=== PATIENT | female | born 1990 | race Caucasian/White ===

== ENCOUNTER → 2019-11-23 13:05 | Outpatient (BNVA) | payer OTHER, SELFPAY | PROVIDERS: Family Provider Family Medicine; PCP Family Medicine; Visit Provider Obstetrics & Gynecology | DX: Z12.4 Encounter for screening for malignant neoplasm of cervix (principal) | CPT/HCPCS: 88175 ==

== ENCOUNTER → 2019-12-01 14:00 | Outpatient (BNVA) | payer OTHER, SELFPAY | PROVIDERS: Family Provider Family Medicine; PCP Family Medicine; Visit Provider Nurse Practitioner Family | DX: R51 Headache (principal); J02.9 Acute pharyngitis, unspecified; Z11.59 Encounter for screening for other viral diseases | CPT/HCPCS: 87635 ==

== ENCOUNTER → 2020-01-10 10:15 | Outpatient (BNVA) | payer OTHER, SELFPAY | PROVIDERS: Family Provider Family Medicine; PCP Family Medicine; Visit Provider Obstetrics & Gynecology | DX: Z34.90 Encounter for supervision of normal pregnancy, unspecified, unspecified trimester (principal) | CPT/HCPCS: 84702 ==

== ENCOUNTER 2020-01-11 16:55 | Emergency (ER) | payer OTHER, SELFPAY ==
--- NOTE | 2020-01-11 16:56 | XR_ITS ---
WS: [id number] Left ankle, 3 views, 01/11/2020 Clinical Data: injury Comparison: None. Findings: No fractures or dislocations are seen. The ankle mortise is normal. The talus and calcaneus are unrem arkable. No soft tissue swelling over the medial or lateral malleolus is seen. XR/XR ankle LT min 3V* [id number] Impression: Negative left ankle.
--- NOTE | 2020-01-11 16:56 | XR_ITS ---
WS: [id number] Left foot, 3 views, 01/11/2020 Clinical Data: injury Comparison: None. Findings: No fractures or dislocations are seen. No bone destruction or erosion is noted. The joint spaces and soft tissues are normal. XR/XR foot LT min 3V* [id number] Impression: Negative left foot.
[2020-01-11 17:01] VITALS: BP 146/100; PULSE 89; RESP 16; TEMP 36.7; O2SAT 100; BMI 27.8
[2020-01-11 17:08] VITALS: O2SAT 98
--- NOTE | 2020-01-11 17:13 | XR_ITS ---
WS: [id number] Right hand, 3 views, 01/11/2020 Clinical Data: pain after fall Comparison: None. Findings: No fractures or dislocations are seen. The soft tissues are unremarkable. The joint space s are normal XR/XR hand RT min 3V* [id number] Impression: Negative right hand.
--- NOTE | 2020-01-11 17:28 | W.ED.EXTPRO ---
HPI - Extremity Problem General: Chief complaint: Extremity Injury, Lower Stated complaint: FALL LEFT FOOT/ANKLE PAIN Time Seen by Provider: 01/11/20 17:07 History of Present Illness: HPI Narrative: 29-year-old female who presents emergency room after falling while at work she was working here at [facility] [place] stumbled going up the stairs she held onto the rail with her left hand and reached out with her right hand to try to break her fall. She has some pain in her right hand as well as in the left ankle. She had an inversion injury to the ankle there is no obvious deformity moderate swelling she did not strike her head there is no loss consciousness she denies any other injuries other than those outlined above. MD Complaint: extremity pain and joint pain (Right hand, left ankle) Onset (ago): minute(s) Pain Consistency: constant Location: other (Right hand left ankle) Quality: aching Radiation: none Relieving factors: rest Exacerbating factors: range of motion and weight bearing Associated symptoms: Reports no associated symptoms; Deny fever(s) Review of Systems Const: Denies: fever(s), chills, body aches, change in appetite, fatigue or malaise Resp: Denies: dyspnea, productive cough or non-productive cough PFSH ED PFSH: Medical History No pertinent past medical history Denies diabetes, asthma, hypertension, seizures, DVT/PE PCP: Dr. Heath Surgical History S/P cholecystectomy 02/12/2019, performed by Dr. Man Guidry/Avi VILLARREAL She had a cone biopsy done in 2007 in the operating room by Dr. Enriquez at [facility] for an abnormal Pap smear. S/P tonsillectomy as a child S/P wisdom tooth extraction Family History Grandmother Breast cancer Paternal, diagnosed at age 55 Hypertension maternal Other Stroke Denies family history of Colon cancer Ovarian cancer Diabetes Heart disease Hyperlipidemia Uterine cancer Thyroid condition Physical Exam Const: COMMON NORMALS: no acute distress GENERAL APPEARANCE: cooperative and comfortable ORIENTATION/CONSCIOUSNESS: Yes awake, Yes oriented to person, Yes oriented to place and Yes oriented to time HENMT: COMMON NORMALS: normocephalic, atraumatic and hearing grossly normal bilaterally HEAD & SCALP: normocephalic and atraumatic Neck/C-Spine: COMMON NORMALS: no JVD Resp: COMMON NORMALS: normal respiratory effort, No retractions, No use of accessory muscles and clear to auscultation bilaterally AUSCULTATION: clear to auscultation bilaterally Cardio: COMMON NORMALS: no JVD, regular rate, regular rhythm and No murmurs present (Cardio) RATE: regular rate RHYTHM: regular rhythm GI: COMMON NORMALS: Soft to palpation and No hepatosplenomegaly present AUSCULTATION: Yes normoactive bowel sounds PALPATION: Yes Soft to palpation, No Tenderness to palpation present (GI), No Guarding due to palpation present (GI) and Yes No hepatosplenomegaly present Extremity: COMMON NORMALS: normal to inspection, capillary refill normal, no clubbing, cyanosis or edema, no calf tenderness and no pedal edema NARRATIVE EXTREMITY EXAM: Mild swelling medial aspect left ankle good dorsi and plantar flexion strength at 5/5 sensation normal dorsalis pedis and posterior tibialis pulses are normal. Examination of the right hand and wrist there is no deformity no pain in the anatomical snuffbox patient is able to flex and extend against resistance good intrinsic hand strength normal sensation neurovascularly intact Neuro: SENSORIUM/ORIENTATION: Yes oriented to person, Yes oriented to place and Yes oriented to time Course Vital Signs: Vital signs: Vital Signs Temperature 98.1 F 01/11/20 17:01 Pulse Rate 89 01/11/20 17:01 Respiratory Rate 16 01/11/20 17:01 Blood Pressure 146/100 01/11/20 17:01 Pulse Oximetry 98 01/11/20 17:08 MDM - Extremity (Nontraumatic) MDM Narrative: Medical decision making narrative: Reviewed x-rays. Patient has mild ankle sprain but no evidence of acute fracture no evidence of significant injury at this time. Weightbearing as tolerated she is prefers not to take any anti-inflammatories ice as needed can use acetaminophen return if has further problems. At this point I think she is safe to return back to work in her normal functions. She demonstrated in the room the ability to weight-bear without difficulty. Discharge Plan Discharge Patient Disposition: Home Clinical Impression: Fall, Ankle sprain and strain Condition: Stable Prescriptions: No Action prenat.vits,layton,dbv-qayl-nomkw Tablet 1 tab PO DAILY RF: 0 Discharge Orders: Discharge Order (Routine); Ordered 01/11/20 Ordered By: Mario Solano Referrals: Mary Heath MD [Primary Care Provider] - Activity Restrictions/Additional Instructions: Follow-up with employee health. Weightbearing on the right foot as tolerated Interventions: ED Discharge Assessment Last Done: 01/11/20 19:05 ED Charges Last Done: 01/11/20 18:41 Discharge Date/Time: 01/11/20 19:06 Coding Level of Care Code ED Bonding And Composite Fabricator for Chg Fwd Exam Detailed
--- NOTE | 2020-01-11 17:36 | PC.NURSE ---
portable xray at bedside
[2020-01-11] MEDS: HYDROcodone-acetaminophen 7.5-325 mg Tablet 1 TAB PO (17:54)
--- NOTE | 2020-01-11 18:44 | PC.NURSE ---
occupational therapy in with pt now to get urine sample and lab samples for workman's comp requirements
== END 2020-01-11 19:06 | disposition home or self-care (01) ==
PROVIDERS: Emergency Provider Family Medicine; Family Provider Family Medicine; PCP Family Medicine
DX: S93.402A Sprain of unspecified ligament of left ankle, initial encounter (principal); S96.912A Strain of unspecified muscle and tendon at ankle and foot level, left foot, initial encounter; W18.43XA Slipping, tripping and stumbling without falling due to stepping from one level to another, initial encounter; Y99.0 Civilian activity done for income or pay
CPT/HCPCS: 12345; 73130; 73610; 73630; 99281; 99283

== ENCOUNTER → 2020-01-16 06:15 | Outpatient (BNVA) | payer OTHER, SELFPAY | PROVIDERS: Family Provider Family Medicine; PCP Family Medicine; Visit Provider Obstetrics & Gynecology | DX: Z34.90 Encounter for supervision of normal pregnancy, unspecified, unspecified trimester (principal) | CPT/HCPCS: 84702 ==

== ENCOUNTER → 2020-01-27 15:46 | Outpatient (BNVA) | payer OTHER, SELFPAY | PROVIDERS: Family Provider Family Medicine; PCP Family Medicine; Visit Provider Obstetrics & Gynecology | DX: Z34.90 Encounter for supervision of normal pregnancy, unspecified, unspecified trimester (principal) | CPT/HCPCS: 84702 ==

== ENCOUNTER → 2020-02-07 11:58 | Outpatient (BNVA) | payer OTHER, SELFPAY | PROVIDERS: Family Provider Family Medicine; PCP Family Medicine; Visit Provider Obstetrics & Gynecology | DX: O03.9 Complete or unspecified spontaneous abortion without complication (principal); Z3A.00 Weeks of gestation of pregnancy not specified | CPT/HCPCS: 84702 ==

== ENCOUNTER → 2020-03-05 17:00 | Outpatient (BNVA) | payer OTHER, SELFPAY | PROVIDERS: Family Provider Family Medicine; PCP Family Medicine; Visit Provider Obstetrics & Gynecology | DX: O03.9 Complete or unspecified spontaneous abortion without complication (principal) | CPT/HCPCS: 84702 ==

== ENCOUNTER → 2020-03-13 08:15 | Outpatient (BNVA) | payer OTHER, SELFPAY | PROVIDERS: Family Provider Family Medicine; PCP Family Medicine; Visit Provider Obstetrics & Gynecology | DX: E34.9 Endocrine disorder, unspecified (principal) | CPT/HCPCS: 84702 ==

== ENCOUNTER → 2020-03-19 08:15 | Outpatient (BNVA) | payer OTHER, SELFPAY | PROVIDERS: Family Provider Family Medicine; PCP Family Medicine; Visit Provider Obstetrics & Gynecology | DX: E34.9 Endocrine disorder, unspecified (principal) | CPT/HCPCS: 84702 ==

== ENCOUNTER → 2020-03-26 08:05 | Outpatient (BNVA) | payer OTHER, SELFPAY | PROVIDERS: Family Provider Family Medicine; PCP Family Medicine; Visit Provider Obstetrics & Gynecology | DX: R79.9 Abnormal finding of blood chemistry, unspecified (principal); Z11.59 Encounter for screening for other viral diseases | CPT/HCPCS: 87635 ==

== ENCOUNTER 2020-03-30 06:02 | Day surgery (SDC) | payer OTHER, SELFPAY ==
[2020-03-27 13:03] VITALS: BMI 27.1
--- NOTE | 2020-03-27 13:31 | ANES.PREANE2 ---
Pre-Anesthetic Assessment Pre-Anesthetic Assessment: Height/Weight: Height 1.8 m Weight 88.451 kg Proposed Procedure: Operation Date: 03/30/20 07:10 Proposed Procedures p Dilation And Curettage (D&C) 37604 R79.9(Not Applicable) - Huma Guerrero MD Was Beta Dolores taken within 24 hours: N/A Social: Social History: No alcohol and No tobacco Exam: Pre-Anes Outpt Exam: alert and oriented x 3 Airway: Submandibular: WNL Cervical ROM: WNL MP: 1 History/ROS: No significant complaints Pulmonary: Pulmonary: None reported CV/HEM: CV/HEM: None reported : : None reported Hepatic: Hepatic: None reported GI: GI: GERD Metabolic: Metabolic: None reported Musc/skel: Musc/skel: None reported Neuropsych: Neuropsych: None reported Anesthetic Plan: ASA status: 2 Anesthesia: Choice PFSH Anesthesia PFSH: Medical History (Updated 01/19/20 @ 00:00 by ) No pertinent past medical history Denies diabetes, asthma, hypertension, seizures, DVT/PE PCP: Dr. Heath Surgical History S/P cholecystectomy 02/12/2019, performed by Dr. Conway S/Avi VILLARREAL She had a cone biopsy done in 2007 in the operating room by Dr. Enriquez at [facility] for an abnormal Pap smear. S/P tonsillectomy as a child S/P wisdom tooth extraction Family History Grandmother Breast cancer Paternal, diagnosed at age 55 Hypertension maternal Other Stroke Denies family history of Colon cancer Ovarian cancer Diabetes Heart disease Hyperlipidemia Uterine cancer Thyroid condition Female Reproductive History: Date of last menstrual period: 04/22/16 Data Anesthesia Cardiac Studies: No Data to Display
[2020-03-30 06:13] VITALS: BP 142/83; PULSE 89; RESP 18; TEMP 36.7; O2SAT 98
[2020-03-30 06:34] LABS: Basophils # 0.1 10^3/uL (0.0-0.1); Basophils % 0.7 %; Eosinophils # 0.2 10^3/uL (0.0-0.8); Eosinophils % 2.7 %; Hematocrit 40.7 % (37.0-47.0); Hemoglobin 12.9 g/dL (11.5-15.3); Lymphocytes # 2.2 10^3/uL (0.8-4.8); Lymphocytes % 32.8 %; Mean Corpuscular HGB Conc 31.7 g/dL (30.0-36.0); Mean Corpuscular Hemoglobin 28.9 pg (28.0-34.0); Mean Corpuscular Volume 91.3 fL (81-99); Monocytes # 0.6 10^3/uL (0.2-0.9); Monocytes % 8.3 %; Neutrophils % 55.2 %; Nucleated Red Blood Cells % 0 %; Platelet Count 232 10^3/cmm (130-400); Red Blood Count 4.46 10^6/uL (4.1-5.3); Red Cell Distribution Width 12.9 % (12.1-15.1); White Blood Count 6.7 10^3/uL (4.0-10.0)
[2020-03-30] MEDS: sodium chloride 0.9% 500 ML IV (06:35)
--- NOTE | 2020-03-30 06:39 | W.PM.OPSUD ---
Surgery/Procedure H&P Update DATE OF PROCEDURE: March 30, 2020 DATE H&P PERFORMED: 03/26/20 H&P UPDATE INFORMATION: I have reviewed H&P completed within last 30 days, I have examined patient prior to procedure, No changes to prior documentation and H&P is in [facility] [place] on date indicated PREOP DIAGNOSIS: Abnormal beta hCG PLANNED PROCEDURE: Operation Date: 03/30/20 07:00 Proposed Procedures p Dilation And Curettage (D&C) 87201 R79.9(Not Applicable) - Huma Guerrero MD
[2020-03-30] MEDS: ondansetron 2 mg/ML SDV 2 mL 4 MG IVP (06:45)
--- NOTE | 2020-03-30 07:27 | PM.OP ---
Operative Report Date of procedure: March 30, 2020 OPERATIVE REPORT Date of surgery: 03/30/2020 Date of dictation: 03/30/2020 Preoperative diagnosis: Persistently elevated blud-vZS-fhtmedeh retained products/incomplete Postoperative diagnosis/findings: Same, 8 weeks size anteverted uterus, mobile, no adnexal masses, shortened cervix with signs of previous surgery Procedure done: Dilation and curettage Specimens removed/disposition of specimens: Endometrial curettings Surgeon: Dr. Huma Cevallos Anesthesia:MAC Estimated blood loss: 25 ml Intravenous fluids: 800 mL of LR Urine output: 60 mL of clear urine via red rubber catheter at the start of procedure Medications: As per anesthesia records Complications: None, patient was taken back to the recovery room in a stable condition PROCEDURE: After consents were signed , the patient was taken to the operating room where she was placed under MAC anesthesia without any difficulty. She was placed in dorsal lithotomy position and exam under anesthesia showed a 8-week size anteverted uterus she was then prepped and draped in the usual sterile fashion. Weighted speculum and lateral wall retractors were used to visualize the cervix and the anterior lip of cervix was grasped with a tenaculum. The cervix was easily dilated without any difficulty to 17 Aquiles-Garcia dilator. Once this was done a sharp curette was introduced into the uterine cavity and curettage was performed without any difficulty until gritty sensation was obtained on all 4 gray of the uterus. Minimal to moderate tissue was obtained which appeared to look like normal endometrial tissue. This was sent to pathology. Bleeding was noted to be minimal. Tenaculum was removed from the cervix and hemostasis was noted at tenaculum site. Moved from the vagina. Anesthesia was reversed and patient was taken to the recovery room in a stable condition. FOLLOW UP: Follow-up in 3 weeks with surgeon MEDICATION ON DISCHARGE: Colace 100 mg by mouth every 12 hours when necessary constipation, 30 tablets, no refills Ibuprofen 800 mg by mouth every 8 hours when necessary pain, 60 tablets, no refills. Continue other home medication DISPOSITION: Home in a stable condition Pre-op Diagnosis: Abnormal beta hCG Results [facility] Beta-hCG trend 01/10/2020-751 01/16/2020-3057 01/27/2020-3413 (Cytotec and SAB) 02/07/2020-175 03/05/2020-327 03/13/2020-233 03/19/2020-213 03/30/20(D&C)--->105 04/06/20---> PAP Reports having normal Pap smears until 2007 when she had an abnormal Pap smear. This was repeated in 3 months and as it was still abnormal she was told she needed a cone biopsy which was performed in 2007. She reports compliance with her followup and states that they were all normal. 11/23/2019---([facility])----> negative for intraepithelial lesion or malignancy, negative high-risk HPV 06/2016----([facility])---->Normal per patient----these records have been requested today 10/02/2015---([facility])--> negative for intraepithelial lesion or malignancy, negative high-risk HPV 09/19/14-([facility])--> colposcopy [id number]-[id number]-yv LUI, squamocolumnar junction was not clearly seems to ECC was performed-scant endocervical cells-no atypia/dysplasia. High risk HPV negative. Repeat pap in 1 year. 08/25/14-([facility])-->LGSIL Her last Pap smear was in 2011 or 2012 and was normal per patient.
[2020-03-30] MEDS: sodium chloride 0.9% 1,000 ML 30 ML IV (07:35)
[2020-03-30 07:38] VITALS: BP 142/83; PULSE 89; RESP 18; TEMP 36.2; O2SAT 98
[2020-03-30 08:02] VITALS: BP 111/86; PULSE 72; RESP 18; O2SAT 100
[2020-03-30] MEDS: ibuprofen 800 mg tablet PO (08:15)
--- NOTE | 2020-03-30 13:11 | W.PM.OPSUD ---
Surgery/Procedure H&P Update DATE OF PROCEDURE: March 30, 2020 DATE H&P PERFORMED: 03/26/20 H&P UPDATE INFORMATION: I have reviewed H&P completed within last 30 days, I have examined patient prior to procedure, No changes to prior documentation and H&P is in [facility] [place] on date indicated PREOP DIAGNOSIS: Abnormal beta hCG PLANNED PROCEDURE: Operation Date: 03/30/20 07:00 Proposed Procedures p Dilation And Curettage (D&C) 08140 R79.9(Not Applicable) - Huma Guerrero MD
== END 2020-03-30 08:20 | disposition home or self-care (01) ==
PROVIDERS: Family Provider Family Medicine; PCP Family Medicine; Visit Provider Obstetrics & Gynecology
PROC: (CPT 58120; principal; 2020-03-30 07:00)
DX: O03.4 Incomplete spontaneous abortion without complication (principal)
CPT/HCPCS: 59812; 12345; 36415; 84702; 85025; 86850; 86900; 88305; 96365; 96374; J2405; J2704; J3010; J3490; J7030; J7040

== ENCOUNTER → 2020-04-04 11:50 | Outpatient (BNVA) | payer OTHER, SELFPAY | PROVIDERS: Family Provider Family Medicine; PCP Family Medicine; Visit Provider Obstetrics & Gynecology | DX: O03.4 Incomplete spontaneous abortion without complication (principal) | CPT/HCPCS: 84702 ==

== ENCOUNTER → 2020-05-03 10:55 | Outpatient (BNVA) | payer OTHER, SELFPAY | PROVIDERS: Family Provider Family Medicine; PCP Family Medicine; Visit Provider Nurse Practitioner Family | DX: Z01.812 Encounter for preprocedural laboratory examination (principal) | CPT/HCPCS: 87426 ==

== ENCOUNTER 2020-06-04 08:26 | Outpatient (CLI) | payer OTHER, SELFPAY ==
[2020-06-04 09:04] LABS: Progesterone 8.53 ng/mL
== END 2020-06-04 08:27 | disposition home or self-care (01) ==
PROVIDERS: PCP Family Medicine; Visit Provider Obstetrics & Gynecology
DX: N92.6 Irregular menstruation, unspecified (principal)
CPT/HCPCS: 36415; 84144

== ENCOUNTER → 2020-09-27 08:34 | Outpatient (BNVA) | payer OTHER, SELFPAY | PROVIDERS: PCP Family Medicine; Visit Provider Obstetrics & Gynecology | DX: O03.4 Incomplete spontaneous abortion without complication (principal) | CPT/HCPCS: 84702 ==

== ENCOUNTER → 2020-10-01 10:13 | Outpatient (BNVA) | payer OTHER, SELFPAY | PROVIDERS: PCP Family Medicine; Visit Provider Obstetrics & Gynecology | DX: Z34.90 Encounter for supervision of normal pregnancy, unspecified, unspecified trimester (principal) | CPT/HCPCS: 84702 ==

== ENCOUNTER 2020-10-29 20:37 | Emergency (ER) | payer OTHER, SELFPAY ==
[2020-10-29 20:57] VITALS: BP 111/71; PULSE 80; RESP 16; TEMP 36.9; O2SAT 97; BMI 28.1
[2020-10-29 21:17] VITALS: BP 114/75; PULSE 86; RESP 18; O2SAT 98
[2020-10-29 21:23] VITALS: BP 121/87; BP 126/85; PULSE 82; PULSE 87; PULSE 96
--- NOTE | 2020-10-29 21:26 | ED_ITS ---
HPI - Dizziness General: Chief Complaint: Dizziness Stated Complaint: DAY 10 COVID +: VISION CHANGES, NUMB/TINGLING EXTR Time Seen by Provider: 10/29/20 21:25 History of Present Illness: HPI Narrative: This patient is a 30-year-old female who presents to the emergency department with complaint of dizziness. 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 Patient also states she is 10 weeks . Patient states she has been doing well and was actually getting up to clean around the house and was bending over and got a little vision disturbance then felt tingling and shaking around the mouth and hands. Patient denies any syncopal episodes. Patient states she just felt nauseous. Will do medical evaluation treat as needed MD elicited complaint: dizziness and disequilibrium Timing: sudden onset Severity: mild Description: sense of movement Exacerbating factors: change in body position Relieving factors: remaining still Associated symptoms: Denies chest pain, chills, headache(s), nausea, palpitations or vomiting Associated neuro symptoms: Deny numbness in extremities Review of Systems General: Reports: 10 or more systems reviewed and unremarkable except in HPI and below Const: Denies: fever(s), chills, body aches or fatigue Eyes: Denies: change in vision or blurry vision ENMT: Denies: throat pain, hoarseness or mouth pain Card: Denies: chest pain, palpitations, irregular heart rhythm, edema, swelling of feet/ankles or lightheadedness Resp: Denies: dyspnea, productive cough, non-productive cough, wheezing or pain on inspiration GI: Denies: abdominal pain, nausea or vomiting : Denies: flank pain, difficulty voiding, dysuria, urinary frequency, urinary urgency or urinary hesitancy Musc: Denies: neck pain, back pain, extremity pain, extremity swelling, joint pain, joint swelling, joint redness, joint warmth or limited range of motion Skin/Breast: Denies: rash, pruritus, erythema or skin tenderness Neuro: Reports: dizziness; Denies: headache(s), numbness in extremities or weakness in extremities Psych: Denies: anxiety or depression PFSH ED PFSH: Medical History No pertinent past medical history Denies diabetes, asthma, hypertension, seizures, DVT/PE PCP: Dr. Heath Surgical History Hx of LASIK S/P cholecystectomy 02/12/2019, performed by Dr. Conway S/P dilation and curettage 03/30/2020--D&C done for persistently positive beta hCG after miscarriage-by Dr. Cevallos at [facility] [place]. - Pathology showed chorionic villi with focal hydropic changes without tissue, acutely inflamed decidua and benign proliferative phase endometrium without hyperplasia. S/P LEEP She had a cone biopsy done in 2007 in the operating room by Dr. Enriquez at [facility] for an abnormal Pap smear. S/P tonsillectomy as a child S/P wisdom tooth extraction Family History Grandmother Breast cancer Paternal, diagnosed at age 55 Hypertension maternal Other Stroke Denies family history of Colon cancer Ovarian cancer Diabetes Heart disease Hyperlipidemia Uterine cancer Thyroid condition Female Reproductive History: Date of last menstrual period: 04/22/16 Physical Exam Const: COMMON NORMALS: no acute distress, average body habitus, patient oriented x3, no limitations, healthy appearing, alert and well nourished HENMT: COMMON NORMALS: normocephalic, atraumatic, hearing grossly normal bilaterally, external ears normal, EAC's normal, TM's normal bilaterally, Normal external nose present, Normal nasal mucous membranes and turbinates present, moist oral mucous membranes, oropharynx normal, dentition normal and gingiva normal HEAD & SCALP: normocephalic and atraumatic NOSE: Normal external nose present and Normal nasal mucous membranes and turbinates present EXTERNAL EAR: Yes external ears normal EXTERNAL AUDITORY CANAL: EAC's normal TYMPANIC MEMBRANE: TM's normal bilaterally Neck/C-Spine: COMMON NORMALS: full ROM, no lymphadenopathy, supple, no meningeal signs, no JVD, Thyroid normal and No carotid bruits THYROID: Thy roid normal Chest: COMMONS NORMALS: normal inspection of the chest, normal palpation of entire chest wall, normal inspection of the breasts and normal palpation of the breasts Breast/axilla inspection: Yes normal inspection of the breasts BREAST/AXILLA PALPATION: Yes normal palpation of the breasts Resp: COMMON NORMALS: normal respiratory effort, No retractions, No use of accessory muscles, clear to auscultation bilaterally and percussion normal AUSCULTATION: clear to auscultation bilaterally PERCUSSION: percussion normal Cardio: COMMON NORMALS: no JVD, regular rate, regular rhythm, S1 normal heart sound present, S2 normal heart sound present, No gallops present (Cardio), No clicks present (Cardio), No murmurs present (Cardio), No rub (Cardio) and Peripheral pulses 2+ throughout RATE: regular rate RHYTHM: regular rhythm HEART SOUNDS: S1 normal heart sound present and S2 normal heart sound present PERIPHERAL PULSES: Peripheral pulses 2+ throughout GI: COMMON NORMALS: Normal to inspection, nondistended, normoactive bowel sounds present, Soft to palpation, non-tender, No hepatosplenomegaly present, no masses and no bruits PALPATION: Yes Soft to palpation and Yes No hepatosplenomegaly present Back/Pelvis: COMMON NORMALS: thoracic and lumbar spine normal to inspection, no thoracic nor lumbar tenderness, thoraco-lumbar ROM normal and straight leg raise negative bilaterally Extremity: COMMON NORMALS: normal to inspection, full ROM, capillary refill normal, no joint enlargement, no clubbing, cyanosis or edema, no calf tenderness and no pedal edema Neuro: COMMON NORMALS: patient oriented x3 SENSORIUM/ORIENTATION: Yes alert MENINGEAL SIGNS: Yes no meningeal signs Course Reevaluation(s): Reevaluation #1: Patient is much improved. Patient describes no further symptoms. After IV fluid bolus. Labs unremarkable. Discussed with patient home she will be careful when changing positions. Continue with COVID- 19 precautions. Follow-up with PCP as needed if symptoms fail to improve or worsen. Return to the emergency department as needed. Time: 23:02 Vital Signs: Vital signs: Vital Signs Temperature 98.5 F 10/29/20 20:57 Pulse Rate 77 10/29/20 22:29 Respiratory Rate 16 10/29/20 22:29 Blood Pressure 106/65 10/29/20 22:29 Pulse Oximetry 100 10/29/20 22:29 MDM - Dizziness MDM Narrative: Medical decision making narrative: Patient is much improved. Patient describes no further symptoms. After IV fluid bolus. Labs unremarkable. Discussed with patient home she will be careful when changing positions. Continue with COVID-19 precautions. Follow-up with PCP as needed if symptoms fail to improve or worsen. Return to the emergency department as needed. Lab Data: Labs: Lab Results 10/29/20 10/29/20 10/29/20 Range/Units 21:38 21:38 21:47 WBC 4.1 (4.0-10.0) 10^3/ uL RBC 4.78 (4.1-5.3) 10^6/u L Hgb 14.0 (11.5-15.3) g/dL Hct 42.1 (37.0-47.0) % MCV 88.1 (81-99) fL MCH 29.3 (28.0-34.0) pg MCHC 33.3 (30.0-36.0) g/dL RDW 12.2 (12.1-15.1) % Plt Count 181 (130-400) 10^3/c mm MPV 11.7 H (7.4-10.4) fL Neut % (Auto) 42.9 % Lymph % (Auto) 45.6 % [place] % (Auto) 9.1 % Eos % (Auto) 2.0 % Baso % (Auto) 0.2 % Neut # (Auto) 1.75 L (1.8-7.7) 10^3/u L Lymph # (Auto) 1.9 (0.8-4.8) 10^3/u L [place] # (Auto) 0.4 (0.2-0.9) 10^3/u L Eos # (Auto) 0.1 (0.0-0.8) 10^3/u L Baso # (Auto) 0.0 (0.0-0.1) 10^3/u L Nucleated RBC % (a uto) 0 % Nucleated RBCs # 0.0 /100WBC Sodium 136 (136-145) mmol/L Potassium 3.5 (3.5-5.1) mmol/L Chloride 102 (98-107) mmol/L Carbon Dioxide 23 (22-29) mmol/L Anion Gap 14.5 (5-19) BUN 11 (6-20) mg/dL Creatinine 0.5 (0.5-0.9) mg/dL GFR Calculation 143.9 H (90-130) mL/min Glucose 106 (65-115) mg/dL Calculated Osmolal ity 282 L (285-295) mOsm/k g Calcium 8.9 (8.5-10.5) mg/dL Total Bilirubin 0.2 (0.15-1.2) mg/dL AST 32 (0-32) U/L ALT 40 H (0-33) U/L Alkaline Phosphata se 84 (35-105) IU/L Total Protein 6.4 L (6.6-8.7) g/dL Albumin 3.7 (3.5-5.2) g/dL Globulin 2.7 (1.3-4.6) g/dL Urine Color Yellow (Yellow) Urine Appearance Clear (CLEAR) Urine pH 5 (5-7) Ur Specific Gravit y 1.020 (1.005-1.030) Urine Protein Neg (Negative) Urine Glucose (UA) Norm (Normal) Urine Ketones Negative (Negative) Urine Blood Neg (Negative) Urine Nitrate Negative (Negative) Urine Bilirubin Neg (Negative) Urine Urobilinogen Norm (Negative) mg/dL Ur Leukocyte Jenny ase Negative (Negative) EKG Data^: EKG 1: Attestation: I personally reviewed and interpreted this EKG as follows: EKG interpretation date: 10/29/20 EKG interpretation time: 21:34 Prior EKG tracings: not available for review Interpretation: Normal sinus rhythm heart rate 80 Discharge Plan Discharge Patient Disposition: Home Clinical Impression: Orthostasis Condition: Stable Prescriptions: No Action prenat.vits,layton,[id number] Tablet 1 tab PO DAILY RF: 0 doxylamine-pyridoxine (vit B6) [Diclegis] 10-10 mg tablet,delayed release (DR/EC) 2 tab PO .q hs 30 Days Qty: 60 RF: 0 Discharge Orders: Discharge ED (Routine); Ordered 10/29/20 Ordered By: Jostin Flores Referrals: Mary Heath MD [Primary Care Provider] - Discharge Diet: Advance as tolerated Discharge Activity: Resume usual activity and Increase activity as tolerated Patient Instructions: Opioid Safety Activity Restrictions/Additional Instructions: Encourage p.o. fluids. Change positions sitting lying to standing slowly. Continue with post Covid instructions and precautions. Follow-up with PCP in 2 to 3 days. Coding Level of Care Code ED Agricultural Service Technician for Chg Fwd Exam Comprehensive
--- NOTE | 2020-10-29 21:26 | ECG_ITS ---
[facility] Test Date: 2020-10-29 Pat Name: Sherrie Craig Department: Room: Gender: Female [employer]: : 1990 Requested By: Jostin Flores Order Number: [id number] Janett MD: Pili Vick M.D. Measurements Intervals [place] Rate: 80 P: 44 CT: 145 QRS: 1 QRSD: 98 T: 12 QT: 361 QTc: 419 Interpretive Statements SINUS RHYTHM Compared to ECG 04/08/2018 23:18:33 Sinus arrhythmia no longer present Electronically Signed On 10-30-2020 16:44:32 CDT by Pili Vick M.D. [id number]
[2020-10-29 21:44] LABS: Basophils % 0.2 %; Eosinophils # 0.1 10^3/uL (0.0-0.8); Hematocrit 42.1 % (37.0-47.0); Lymphocytes # 1.9 10^3/uL (0.8-4.8); Lymphocytes % 45.6 %; Mean Corpuscular HGB Conc 33.3 g/dL (30.0-36.0); Mean Corpuscular Hemoglobin 29.3 pg (28.0-34.0); Mean Corpuscular Volume 88.1 fL (81-99); Mean Platelet Volume 11.7 fL (7.4-10.4); Monocytes # 0.4 10^3/uL (0.2-0.9); Monocytes % 9.1 %; Neutrophils # 1.75 10^3/uL (1.8-7.7); Neutrophils % 42.9 %; Nucleated Red Blood Cells % 0 %; Platelet Count 181 10^3/cmm (130-400); Red Blood Count 4.78 10^6/uL (4.1-5.3); Red Cell Distribution Width 12.2 % (12.1-15.1); White Blood Count 4.1 10^3/uL (4.0-10.0)
[2020-10-29 21:54] LABS: Add Urine Microscopic? NO; Charge for UA Resulting for Rev
[2020-10-29 21:56] LABS: Alanine Aminotransferase 40 U/L (0-33); Albumin Level 3.7 g/dL (3.5-5.2); Alkaline Phosphatase 84 IU/L (35-105); Anion Gap 14.5 (5-19); Blood Urea Nitrogen 11 mg/dL (6-20); Calcium 8.9 mg/dL (8.5-10.5); Carbon Dioxide 23 mmol/L (22-29); Chloride 102 mmol/L (98-107); Globulin 2.7 g/dL (1.3-4.6); Glomerular Filtration Rate 143.9 mL/min (90-130); Glucose 106 mg/dL (65-115); Osmolality Calculated 282 mOsm/kg (285-295); Potassium 3.5 mmol/L (3.5-5.1); Sodium 136 mmol/L (136-145); Total Bilirubin 0.2 mg/dL (0.15-1.2); Total Protein 6.4 g/dL (6.6-8.7)
[2020-10-29] MEDS: sodium chloride 0.9% 1,000 ML 999 ML IV (21:57)
[2020-10-29 22:00] LABS: Bilirubin Urine Neg (Negative); Blood Urine Neg (Negative); Glucose Urine UA Norm (Normal); Ketones Urine Negative (Negative); Leukocyte Esterase Urine Negative (Negative); Nitrate Urine Negative (Negative); Protein Urine Neg (Negative); Urine Appearance Clear (CLEAR); Urine Color Yellow (Yellow); Urobilinogen Urine Norm (Negative); pH Urine 5 (5-7)
[2020-10-29 22:03] LABS: Aspartate Amino Transferase 32 U/L (0-32)
[2020-10-29 22:29] VITALS: BP 106/65; PULSE 77; RESP 16; O2SAT 100
== END 2020-10-29 23:30 | disposition home or self-care (01) ==
PROVIDERS: Nurse Practitioner Family; Emergency Provider Emergency Medicine; PCP Family Medicine
DX: O26.891 Other specified pregnancy related conditions, first trimester (principal); I95.1 Orthostatic hypotension; Z3A.10 10 weeks gestation of pregnancy
CPT/HCPCS: 80053; 81003; 85025; 93005; 96360; 99284; J7030

== ENCOUNTER → 2020-11-19 09:22 | Outpatient (BNVA) | payer OTHER, SELFPAY | PROVIDERS: PCP Family Medicine; Visit Provider Obstetrics & Gynecology | DX: Z34.90 Encounter for supervision of normal pregnancy, unspecified, unspecified trimester (principal) | CPT/HCPCS: 80307; 82950; 84315; 84443; 86592; 86762; 86803; 86850; 86900; 87086; 87340; 87491; 87591; 87806 ==

== ENCOUNTER → 2020-11-26 08:12 | Outpatient (BNVA) | payer OTHER, SELFPAY | PROVIDERS: PCP Family Medicine; Visit Provider Obstetrics & Gynecology | DX: Z34.80 Encounter for supervision of other normal pregnancy, unspecified trimester (principal) | CPT/HCPCS: 82951; 82952 ==

== ENCOUNTER 2020-12-03 14:53 | Emergency (ER) | payer OTHER, SELFPAY ==
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
--- NOTE | 2020-12-03 15:22 | XR_ITS ---
WS: [id number] Exam: XR forearm LT 2V [id number] Date/Time of Exam: 12/03/2020 3:39 PM Reason For Exam: trauma Findings: There are no fractures, soft tissue swelling, or calcifications of the forearm. There is no irregula rity of the bony architecture. The bony elements lie in good position. XR/XR forearm LT 2V [id number] IMPRESSION: Negative left forearm.
--- NOTE | 2020-12-03 15:22 | XR_ITS ---
WS: [id number] Exam: XR forearm RT 2V [id number] Date/Time of Exam: 12/03/2020 3:39 PM Reason For Exam: trauma Findings: There are no fractures, soft tissue swelling, or calcifications of the forearm. There is no irregula rity of the bony architecture. The bony elements lie in good position. XR/XR forearm RT 2V [id number] IMPRESSION: Negative right forearm.
[2020-12-03 15:24] VITALS: BP 120/81; PULSE 113; RESP 18; TEMP 36.7; O2SAT 98; BMI 28.7
== END 2020-12-03 15:54 | disposition home or self-care (01) ==
PROVIDERS: Emergency Provider Family Medicine; PCP Family Medicine
DX: S50.812A Abrasion of left forearm, initial encounter (principal); Y04.8XXA Assault by other bodily force, initial encounter; Y92.239 Unspecified place in hospital as the place of occurrence of the external cause
CPT/HCPCS: 73090; 99282

== ENCOUNTER → 2020-12-11 09:06 | Outpatient (BNVA) | payer OTHER, SELFPAY | PROVIDERS: PCP Family Medicine; Visit Provider Nurse Practitioner Women's Health | DX: O21.9 Vomiting of pregnancy, unspecified; Z3A.00 Weeks of gestation of pregnancy not specified | CPT/HCPCS: 81000; 82105 ==

== ENCOUNTER → 2021-01-25 08:02 | Outpatient (BNVA) | payer OTHER, SELFPAY | PROVIDERS: PCP Family Medicine; Visit Provider Obstetrics & Gynecology | DX: Z36.86 Encounter for antenatal screening for cervical length (principal) | CPT/HCPCS: 76817 ==

== ENCOUNTER → 2021-03-06 08:19 | Outpatient (BNVA) | payer OTHER, SELFPAY | PROVIDERS: PCP Family Medicine; Visit Provider Obstetrics & Gynecology | DX: O99.810 Abnormal glucose complicating pregnancy (principal) | CPT/HCPCS: 82951; 82952; 84315; 85025 ==

== ENCOUNTER 2021-03-07 19:24 | Outpatient (CLI) | payer OTHER, SELFPAY ==
[2021-03-07 19:29] VITALS: TEMP 36.3
[2021-03-07 19:31] VITALS: BP 124/80; PULSE 97
--- NOTE | 2021-03-07 19:42 | USR_ITS ---
PROCEDURE INFORMATION: Exam: US Biophysical Profile Without Non-Stress Test Exam date and time: 03/07/2021 7:42 PM Age: 31 years old Clinical indication: status abnormalities: ; Other: Poor movement; Single gestation; Third trimester (=28 weeks 0 days); ; Additional info: Decreased movement, with toni TECHNIQUE: Imaging protocol: US biophysical profile without non-stress testing. COMPARISON: US OB >= 14 weeks fetus [facility] 01/08/2021 3:39 PM FINDINGS: Gestation: Single intrauterine fetus. heart rate: heart rate 147 bpm Presentation: Breech presentation. BIOPHYSICAL PROFILE: Breathin/2 Gross body movements: 2/2 tone: 2/2 Qualitative amniotic fluid: 2/2 Biophysical Profile Score: 8/8 US/US OB BPP NST [id number] IMPRESSION: Biophysical profile score is 8 out of 8. Radiation Dose CTDIVOL = (mGy): DLP = (mGy-cm)
[2021-03-07 19:46] VITALS: BP 125/78; PULSE 85
[2021-03-07 20:25] VITALS: BP 125/70; PULSE 88
[2021-03-07 20:33] VITALS: BP 125/70; PULSE 88; RESP 18
== END 2021-03-07 20:43 | disposition home or self-care (01) ==
LOC: OPOB 19:25 → OBGYN 19:25 → OPOB 19:26
PROVIDERS: PCP Family Medicine; Visit Provider Obstetrics & Gynecology
DX: O36.8130 Decreased fetal movements, third trimester, not applicable or unspecified (principal)
CPT/HCPCS: 76819

== ENCOUNTER 2021-03-20 18:00 | Outpatient (CLI) | payer OTHER, SELFPAY ==
[2021-03-20] VITALS (9 sets, daily range): BP systolic 128–146; BP diastolic 74–76; PULSE 78–110; RESP 18; O2SAT 99–100
[2021-03-20] MEDS: terbutaline 1 mg/mL INJ 0.25 MG SUBCUT (18:39)
[2021-03-20] MEDS: lactated ringers 1,000 ML 999 ML IV (18:43)
== END 2021-03-20 19:30 | disposition home or self-care (01) ==
LOC: OPOB 18:05 → OBGYN 18:07
PROVIDERS: Absent Provider Obstetrics & Gynecology; PCP Family Medicine; Visit Provider Obstetrics & Gynecology
DX: O47.9 False labor, unspecified (principal)
CPT/HCPCS: 59025; 96372; 99211; J3105

== ENCOUNTER 2021-03-22 05:30 | Inpatient (IN) | payer OTHER, SELFPAY ==
[2021-03-22] VITALS (82 sets, daily range): BP systolic 99–143; BP diastolic 52–85; PULSE 65–111; RESP 15–18; TEMP 36.6–37.1; O2SAT 91–100; BMI 31.5
--- NOTE | 2021-03-22 00:49 | USR_ITS ---
PROCEDURE INFORMATION: Exam: US , Limited Exam date and time: 03/22/2021 12:49 AM Age: 31 years old Clinical indication: complicated by abdominal or pelvic pain; Lower; Third trimester (=28 weeks 0 days); Gestational age or lmp: 30 w 5 day; ; Additional info: Bleeding, placenta and cevix TECHNIQUE: Imaging protocol: Real-time ultrasound of the maternal uterus with image documentation. Exam focused on the clinical indication. COMPARISON: US OB BPP NST [id number] 03/07/2021 8:01 PM FINDINGS: Gestation: There is a single intrauterine gestation. heart rate: heart rate 138 bpm. Placenta: The placenta is posterior without evidence of previa or abruption. BIOMETRY: Gestational age (AUA): The estimated gestational age based on last menstrual period is 30 weeks 5 days. MATERNAL: Cervix: The cervix appears open. US/US OB limited [id number] IMPRESSION: 1. Single viable intrauterine gestation. 2. Estimated gestational age 30 weeks 5 days 3. The cervix appears open. 4. There is no evidence for previa or abruption
[2021-03-22] MEDS: lactated ringers 1,000 ML 999 ML IV ×2 (00:50→02:51)
[2021-03-22] MEDS: magnesium sulfate premix 4 GM/100 ML PREMIX IV (01:13)
[2021-03-22] MEDS: terbutaline 1 mg/mL INJ 0.25 MG SUBCUT ×2 (01:17→02:06)
[2021-03-22 01:21] LABS: Basophils # 0.1 10^3/uL (0.0-0.1); Basophils % 0.4 %; Eosinophils # 0.2 10^3/uL (0.0-0.8); Eosinophils % 1.1 %; Hematocrit 37.8 % (37.0-47.0); Hemoglobin 12.4 g/dL (11.5-15.3); Lymphocytes # 3.2 10^3/uL (0.8-4.8); Lymphocytes % 24.3 %; Mean Corpuscular HGB Conc 32.8 g/dL (30.0-36.0); Mean Corpuscular Hemoglobin 29.3 pg (28.0-34.0); Mean Corpuscular Volume 89.4 fl (81-99); Mean Platelet Volume 11.8 fL (7.4-10.4); Monocytes # 0.9 10^3/uL (0.2-0.9); Monocytes % 6.8 %; Neutrophils # 8.73 10^3/uL (1.8-7.7); Neutrophils % 66.7 %; Nucleated Red Blood Cells % 0 %; Platelet Count 216 10^3/cmm (130-400); Red Blood Count 4.23 10^6/uL (4.1-5.3); Red Cell Distribution Width 13.4 % (12.1-15.1); White Blood Count 13.1 10^3/uL (4.0-10.0)
[2021-03-22] MEDS: betamethasone susp 6 mg/mL 5 mL 12 MG IM (01:21)
[2021-03-22] MEDS: magnesium sulfate premix 20 GM/500 ML BAG IV (01:33)
--- NOTE | 2021-03-22 01:43 | PM.OBGYHP ---
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 She had been seen before on Labor and Delivery on 03/20/2021 with reports of contractions at which point she was closed thick and high with a regular contractions. She was given a single dose of terbutaline after which her contractions spaced out and she made no cervical change and she was discharged home. She stated that on 03/21/2021 she just had irregular contractions but these were not concerning. She started to dimitri more regularly at 5 PM and wanted to try to sleep to see if this would resolve her pain. She states that she woke up at 11:30 PM to go to the bathroom and felt stronger contractions like the evening before. When she used the bathroom she noticed blood on her toilet paper and noticed that there was blood in the toilet bowl and she called Labor and Delivery and presented for evaluation. Upon initial evaluation at 12:50 AM pelvic exam was not done however she was noted to have dark red blood on her pad but was not actively bleeding. tracing was category 1 and she was noted to be dimitri every 2 to 4 minutes. Given her history of placental shelf ultrasound was done and fetus was noted to be in breech presentation and placental shelf was noted to be intact and away from the cervix. Speculum exam showed the cervix to be 1 to 2 cm and gentle digital exam showed the cervix to be 2 to 3 cm 70% effaced with no presenting part. ----Decision was made to admit patient to labor and delivery Present Details Date of Last Menstrual Period: 08/08/20 Calculated Date of Delivery: 05/15/21 Gestational Age Based on Last Menstrual Period: 31 Review of Systems General: Reports: 10 or more systems reviewed and unremarkable except in HPI and below Const: Denies: fever(s), chills, change in appetite, change in weight, fatigue, malaise or change in sleep pattern Eyes: Denies: change in vision, eye discomfort, eye discharge or seeing flashes ENMT: Denies: throat pain, odynophagia, hoarseness, bleeding gums, ear discharge, nasal discharge or nasal congestion Card: Denies: chest pain, irregular heart rhythm, edema, swelling of feet/ankles, dyspnea on exertion or leg pain with exertion Resp: Denies: dyspnea, productive cough, wheezing or chest congestion GI: Reports: abdominal pain; Denies: nausea, vomiting, heartburn, diarrhea, constipation, change in bowel habits or hematochezia : Reports: vaginal bleeding; Denies: flank pain, dysuria, urinary frequency, urinary urgency, urinary incontinence, genital lesions, vaginal odor, vaginal discharge, dysmenorrhea, change in menstrual flow, prolapse symptoms, dyspareunia or sexual dysfunction Musc: Denies: neck pain, back pain, joint pain, joint swelling or muscle cramps Skin/Breast: Denies: rash, pruritus, breast tenderness, nipple discharge or breast mass Neuro: Denies: headache(s), numbness in extremities or seizure-like activity Psych: Denies: anxiety, depression, mood swings or change in appetite Endo: Denies: cold intolerance, flushing, hot flashes or change in body appearance Lamine/Lymph: Denies: easy bruising, easy bleeding or enlarged lymph nodes All/Imm: Denies: urticaria, tongue swelling, acute wheezing or itchy eyes Medications/Allergies Home Medications Medication Instructions Recorded Confirmed Last Taken Type prenat.vits,layton,ppb-rnwn-vloze 1 tab PO DAILY 11/23/19 03/19/21 03/29/20 History Allergies Allergy/AdvReac Type Severity Reaction Status Date / Time piperacillin [From Zosyn] Allergy hives Verified 03/19/21 10:10 Sulfa (Sulfonamide Allergy rash Verified 03/19/21 10:10 Antibiotics) tazobactam [From Zosyn] Allergy hives Verified 03/19/21 10:10 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 Heath Surgical History Hx of ESHAPRATIK In 2019 S/P cholecystectomy 02/12/2019--- laparoscopic procedure performed by Dr. Miller S/P dilation and curettage 03/30/2020--D&C done for persistently positive beta hCG after miscarriage-by Dr. Cevallos at [facility] [place]. - Pathology showed chorionic villi with focal hydropic changes without tissue, acutely inflamed decidua and benign proliferative phase endometrium without hyperplasia. S/P LEEP She had a cone biopsy done in 2007 in the operating room by Dr. Enriquez at [facility] for an abnormal Pap smear. 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 She reports being on seasonique since 2008 and since then has had periods every 3 months. When she had the Mirena she was largely amenorrheic on it Sexual History: Sexual History Comment: Coitarche at age 15, more than 5 lifetime partners, has been with her current partner, her Edin since 2013. He owns a sawmill in [place] STD History Comment: Denies history of sexually transmitted diseases Contraception: Contraception History Comment: Has used -control pills in the past for contraception. The Mirena IUD was placed in March 2017 after the of her last child. It was removed on 11/23/2019 without any difficulty as she is trying to get . ----> Considering the Mirena versus sterilization as she think she and her are done having children History History History 4 Term 1 Miscarriages/Ectopic 2 0 Living Children 1 Other History: 3 Para 1021, x 1, SAB x 2 1--> April/2016--early first trimester, no d & C required 2--> 01/14/2017, female,(Rinaldi), 6 lbs 12.5 ozs, 37 3/7 wks, epidural, vaginal delivery by Dr. Heath at [facility], [place], [place]. Delivery was uncomplicated.she states that she was diagnosed with gestational diabetes and was on metformin during the . Second-degree perineal tear and she gained about 24 pounds during the whole 3-->01/2020, First Trimester SAB with Cytotec---complicated with persistent beta hCGs and had a D&C. 4--> Current Care DEBRA Calculator Estimated Delivery Date Method Current WG Current Estimate 05/26/21 LMP (Certain) 30w 5d Other Estimates 05/23/21 Ultrasound #1 31w 1d Expected Delivery Route/Plan Vaginal Specific Issues/Plans HISTORY OF GESTATIONAL DIABETES-early GCT normal-reassess at 28 weeks PLACENTAL SHELF-has follow-up with MFM on 03/12/2021 COVID IN -8 WEEKS--asymptomatic after this Vitals/I&O/Wt Last Vital Signs Pulse 101 H 03/22/21 01:37 BP 130/75 03/22/21 01:37 Pulse Ox 98 03/22/21 01:37 Weight last 48 hrs Weight 226 lb Physical Exam Narrative: EXAM NARRATIVE: General: well developed, well nourished, uncomfortable during contractions Neuro/Psych: alert, oriented to time, place and person. Neck: No thyromegaly Heart: S1-S2 heard, regular rate and rhythm. Lungs: Clear to auscultation bilaterally. Breast: Deferred Abdomen: Soft, gravid, nontender, no rebound, no guarding Legs: No pedal edema no calf tenderness. Negative Homans sign Back: No CVA tenderness Skin: Normal over abdomen Cervix-2 to 3 cm, 70% and intact membranes-no presenting part palpated. Urinary Catheter Management^: Britt: Cath Placed During This Visit: yes Urinary Catheter Date of Insertion: 03/22/21 Urinary Catheter Time of Insertion: 01:24 Data : 03/22/21 01:00 03/22/21 01:00 Results OB Labs LABS: --- 4-2020 Beta-hCG 09/27/2020: 11,642 10/01/2020: 31,795 10/29/2020([facility] [place]) CBC: 4.1<14/42.1> 181 11/19/2020 Blood type: O positive Antibody screen : Negative Cystic fibrosis: Negative Rubella : Immune Hepatitis B surface antigen: Nonreactive Hepatitis C antibody: Nonreactive RPR: Nonreactive HIV: Nonreactive Drug screen: Negative Urine culture: Urine culture-20,000-30,000 contaminants, no GBS NIPT: Declined Early GCT: 159-abnormal---needs fasting 3-hour GTT TSH: 1.41-normal Gonorrhea: Negative Chlamydia: Negative Pap smear: 11/23/2019--[facility]---negative intraepithelial lesion or malignancy, negative high-risk HPV 11/26/2020: 3-hour GTT-82, 129, 148, 54-all normal-not diabetic 12/11/2020 AFP: Negative for open neural tube defect 01/17/2021 Low risk NIPT fraction 6.9% 03/06/2021 CBC: 9.7<12.6/39.2> 219 3 hr GTT: 82, 170, 152, 62---all normal---not diabetic [Date] GBS: COVID: LICENSED GUIDE Labs Beta-hCG trend 01/10/2020-751 01/16/2020-3057 01/27/2020-3413 (Cytotec and SAB) 02/07/2020-175 03/05/2020-327 03/13/2020-233 03/19/2020-213 03/30/20(D&C)--->105 04/04/20--->1--negative PAP Reports having normal Pap smears until 2007 when she had an abnormal Pap smear. This was repeated in 3 months and as it was still abnormal she was told she needed a cone biopsy which was performed in 2007. She reports compliance with her followup and states that they were all normal. 11/2024----> cotesting due 11/23/2019---([facility])----> negative for intraepithelial lesion or malignancy, negative high-risk HPV 06/2016----([facility])---->Normal per patient--requested multiple times but never received 10/02/2015---([facility])--> negative for intraepithelial lesion or malignancy, negative high-risk HPV 09/19/14---([facility])--> colposcopy pkmneyorh-vlyrjyjeai-zn LUI, squamocolumnar junction was not clearly seems to ECC was performed-scant endocervical cells-no atypia/dysplasia. High risk HPV negative. Repeat pap in 1 year. 08/25/14-([facility])-->LGSIL Her last Pap smear was in 2011 or 2012 and was normal per patient. OB Ultrasound 4---2020 LMP-08/19/2020 DEBRA by LMP-05/26/2021 1) 10/05/2020([facility]-dating) AUA-7w1d DEBRA by sono-05/23/2021 S=D ------------> single live intrauterine , FH 115, no yolk sac seen, small subchorionic bleed measuring 1.5 x 0.7 cm, bilateral ovaries appear normal with the left ovary containing a corpus luteum, no free fluid. 2) 01/08/2021([facility]-anatomy) AUA-20w6d DEBRA by sono- 05/22/2021 S=D -----> single live intrauterine , FH 146, breech, posterior grade 1 placenta without previa, COAT JOINER LOCKSTITCH 7.2 cm, cervix closed measuring 5.2 cm transvaginally at shortest length, EFW 381 g, 13 ounces, 76 percentile. Visualized anatomy appears normal except for nonvisualization of profile, diaphragm, cord insertion stomach and bladder secondary to prone position. Two-vessel umbilical cord is noted. Recommend level 2 sonogram. A thick band of tissue is noted on the right side extending from anterior to posterior-possible uterine synechiae. Recommend level 2 sonogram. 3) 01/29/2021([facility]) AUA-24w2d DEBRA by sono-05/19/2021 S=D --------> single live intrauterine , breech, Normal fluid, EFW 636 g, 1 pound 6 ounces, female anatomy visualized normal and complete except for nonvisualization of short axis and pulmonary artery bifurcation, transvaginal cervical length 4.5 cm, left ovary normal, right ovary not seen. Three-vessel umbilical cord seen. succenturiate anterior and posterior grade 1 placenta with placental synechiae. Three-vessel cord with marginal insertion cord insertion appears to be from the anterior lobe near the connecting membrane between anterior and posterior lobes. The placental vessels are 2.6 cm away from internal os A&P Assessment and plan (1) Placental abnormality, antepartum: 31-year-old 4 para 1-0-2-1 at 30 weeks and 5 days -Active labor -We will start magnesium sulfate for neuro protection and give IV fluid bolus and terbutaline to try to stop labor. -Steroids-betamethasone to be given for lung maturity -Discussed with patient that should labor not be stopped/told and she progresses she will require a for delivery given that fetus is in breech presentation and malposition. She understands this. -Reviewed magnesium sulfate and its risk. Reviewed medication for labor and risks reviewed. -She is allergic to piperacillin and does not know if she has taken Ancef in the past-we will start vancomycin for GBS prophylaxis -Consents to be signed for in case she progresses in labor--anesthesia and counselor marriage and family notified. -Discussed with patient that since she is there is a high likelihood that the baby will need to be transferred because of prematurity-discussed that this is a decision of the counselor marriage and family 1 week. Status: Acute (2) COVID-19 affecting , antepartum: Status: Acute (3) Supervision of other normal : Status: Acute (4) labor: Status: Acute Attestations Medical Necessity Statement*: Patient will need to stay until labor and possibly delivery and recovery Coding Level of Care Code Acute Teller Supervisor for Jamilah Garcia Diagnoses Placental abnormality, antepartum O43.109 COVID-19 affecting , antepartum O98.519; U07.1 Supervision of other normal Z34.80 labor O60.00
[2021-03-22 01:49] LABS: Alanine Aminotransferase 6 U/L (0-33); Albumin Level 3.2 g/dL (3.5-5.2); Alkaline Phosphatase 70 IU/L (35-105); Anion Gap 17.8 (5-19); Aspartate Amino Transferase 8 U/L (0-32); Blood Urea Nitrogen 6 mg/dL (6-20); Calcium 8.8 mg/dL (8.5-10.5); Carbon Dioxide 19 mmol/L (22-29); Chloride 105 mmol/L (98-107); Globulin 2.5 g/dL (1.3-4.6); Glucose 86 mg/dL (65-115); Osmolality Calculated 283 mOsm/kg (285-295); Potassium 3.8 mmol/L (3.5-5.1); Sodium 138 mmol/L (136-145); Total Bilirubin 0.2 mg/dL (0.15-1.2); Total Protein 5.7 g/dL (6.6-8.7)
[2021-03-22] MEDS: dextrose 5%-lactated ringers 1,000 ML 125 ML IV ×2 (01:53→10:21)
--- NOTE | 2021-03-22 02:04 | PC.PHAR ---
Vancomycin is dosed at 1500mg IVPB every 8 hours to produce a predicted trough level of 15.20 (population based pharmacokinetic analysis). A trough level has been ordered from the lab to be obtained before the fourth dose to confirm and adjust if needed.
[2021-03-22] MEDS: fentaNYL 50 mcg/mL INJ 2mL IVP ×2 (02:19→03:34)
[2021-03-22] MEDS: vancomycin 1,500 MG/300 ML PIGGYBACK 150 MG IV (02:21)
[2021-03-22] MEDS: NIFEdipine 10 mg Capsule 30 MG PO ×2 (02:46→03:41)
[2021-03-22] MEDS: metoclopramide 5 mg/mL SDV 2 mL 10 MG IVP (05:20)
[2021-03-22] MEDS: citric acid-sodium citrate 30 mL UDC PO (05:20)
[2021-03-22] MEDS: famotidine 20 mg/2 mL INJ IVP (05:20)
[2021-03-22] MEDS: clindamycin 900 MG/50 ML PREMIX 100 MG IV (05:30)
--- NOTE | 2021-03-22 06:13 | ANES.PREANE2 ---
Pre-Anesthetic Assessment Pre-Anesthetic Assessment: Height/Weight: Height 1.8 m Weight 102.512 kg Temp Pulse Resp BP Pulse Ox 98.8 F 98 17 131/80 94 03/22/21 03:38 03/22/21 05:07 03/22/21 03:34 03/22/21 05:07 03/22/21 05:02 Preop Diagnosis: labor Proposed Procedure: c section Familial anesthetic complications: none Was Beta Dolores taken within 24 hours: Yes Was Clonidine taken within 24 hours: N/A Social: Social History: No alcohol and No tobacco Exam: Pre-Anes Outpt Exam: alert, oriented x 3, clear to auscultation bilaterally and regular rate & rhythm Airway: Submandibular: WNL Cervical ROM: WNL MP: 1 Dentition: Full Pulmonary: Pulmonary: None reported CV/HEM: CV/HEM: None reported : : None reported Hepatic: Hepatic: None reported GI: GI: None reported Metabolic: Metabolic: None reported Musc/skel: Musc/skel: None reported Neuropsych: Neuropsych: None reported Anesthetic Plan: ASA status: 2 Anesthesia: Regional (specify below) Risk of > 500 ml blood loss (7ml/kg in children): No Meds/Allergies Current Medications: Current Medications Generic Name Dose Route Start Last Admin Trade Name Freq PRN Reason Stop Dose Admin Betamethasone Acet /Betameth SodPhos 12 mg 03/22/21 01:15 03/22/21 01:21 Betamethasone Tomas sp 6 Mg/Ml 5 Ml IM 03/23/21 01:16 12 mg Q24H ORESTES Administration Fentanyl 25 - 100 mcg 03/22/21 02:07 03/22/21 03:34 Fentanyl 50 Mcg/ Ml Inj 2ml IVP 50 mcg Q1H PRN Administration SEVERE PAIN Dextrose/Lactated Ringer's 1,000 mls @ 125 m ls/hr 03/22/21 01:15 03/22/21 01:53 Dextrose 5%-Lact ated Ringers IV 125 mls/hr .Q8H ORESTES Administration Magnesium Sulfate 20 gm in 500 mls @ 50 mls/hr 03/22/21 01:15 03/22/21 01:33 Magnesium Sulfat e Premix IV 50 mls/hr .Q10H ORESTES Administration Vancomycin/PEG/NAD A/Lysine/Water 1,500 mg in 300 m ls @ 150 mls/hr 03/22/21 02:00 03/22/21 02:21 Vancocin IV 150 mls/hr Q8H ORESTES Administration PFSH Anesthesia PFSH: Medical History No pertinent past medical history Denies diabetes, asthma, hypertension, seizures, DVT/PE PCP: Dr. Heath Surgical History Hx of LASIK In 2019 S/P cholecystectomy 02/12/2019--- laparoscopic procedure performed by Dr. Miller S/P dilation and curettage 03/30/2020--D&C done for persistently positive beta hCG after miscarriage-by Dr. Cevallos at [facility]. - Pathology showed chorionic villi with focal hydropic changes without tissue, acutely inflamed decidua and benign proliferative phase endometrium without hyperplasia. S/P LEEP She had a cone biopsy done in 2007 in the operating room by Dr. Enriquez at [facility] for an abnormal Pap smear. 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[facility] [employer] Appointment: Prior to 2019 Data Anesthesia CBC & Chem 7: 03/22/21 01:00 03/22/21 01:00 Other Labs: Laboratory Results - last 48 hr 03/22/21 03/22/21 01:00 01:00 WBC 13.1 H RBC 4.23 Hgb 12.4 Hct 37.8 MCV 89.4 MCH 29.3 MCHC 32.8 RDW 13.4 Plt Count 216 MPV 11.8 H Neut % (Auto) 66.7 Lymph % (Auto) 24.3 Childress % (Auto) 6.8 Eos % (Auto) 1.1 Baso % (Auto) 0.4 Neut # (Auto) 8.73 H Lymph # (Auto) 3.2 Childress # (Auto) 0.9 Eos # (Auto) 0.2 Baso # (Auto) 0.1 Nucleated RBC % (auto) 0 Nucleated RBCs # 0.0 Sodium 138 Potassium 3.8 Chloride 105 Carbon Dioxide 19 L Anion Gap 17.8 BUN 6 Creatinine 0.5 GFR Calculation 143.0 H Glucose 86 Calculated Osmolality 283 L Calcium 8.8 Total Bilirubin 0.2 AST 8 ALT 6 Alkaline Phosphatase 70 Total Protein 5.7 L Albumin 3.2 L Globulin 2.5 Cardiac Studies: No Data to Display
--- NOTE | 2021-03-22 07:03 | P.PCN_ITS ---
PACU note PACU note: VSS, Good respiratory effort, report to CONSULTING PRACTICE MANAGER Post-Anesthesia Exam: awake
--- NOTE | 2021-03-22 07:03 | PM.PACU ---
PACU note PACU note: VSS, Good respiratory effort, report to OPTOELECTRONICS ENGINEER Post-Anesthesia Exam: awake
--- NOTE | 2021-03-22 07:22 | PM.OP ---
Operative Report Date of procedure: March 22, 2021 OPERATIVE REPORT Date of surgery: 03/22/2021 Date of dictation: 03/22/2021 Preoperative diagnosis: 31-year-old 4 para 1-0-2-1 at30 weeks and 5 days, active labor, transverse lie back up, placental succenturiate lobe with abnormal vasculature Postoperative diagnosis/findings: Same, baby girl weighing 4 pounds 4 ounces, 1928 g and length of 17.5 with Apgars 2, 6, 7 at 1 minute, 5 minutes and 10 minutes of life, clear fluid Procedure done: Primary delivery via Pfannenstiel incision-low transverse incision. Specimens removed/disposition of specimens: Placenta and cord which were sent to pathology Surgeon: Dr. Huma Cevallos pediatric physician assistant: Radha Drake Anesthesia: Spinal anesthesia Estimated blood loss: 800 ml Intravenous fluids: 1600 mL of LR Urine output: 100 mL of dark and concentrated urine at the end of procedure Medications: As per anesthesia records Complications: None, patient was left to recover in a stable condition, baby was taken by overnight houseperson Dr. Guzman to the nursery because of prematurity INDICATION FOR SURGERY: Ms Craig is a 31-year-old 4 para 1-0-2-1 at 30 weeks and 5 days who presented to labor and delivery at 12:30 AM on 03/22/2021 with reports of vaginal bleeding and contractions. She had been seen before on Labor and Delivery on 03/20/2021 with reports of contractions at which point she was closed thick and high with a regular contractions. She was given a single dose of terbutaline after which her contractions spaced out and she made no cervical change and she was discharged home. She stated that on 03/21/2021 she just had irregular contractions but these were not concerning. She started to dimitri more regularly at 5 PM and wanted to try to sleep to see if this would resolve her pain. She states that she woke up at 11:30 PM to go to the bathroom and felt stronger contractions like the evening before. When she used the bathroom she noticed blood on her toilet paper and noticed that there was blood in the toilet bowl and she called Labor and Delivery and presented for evaluation. Upon initial evaluation at 12:50 AM pelvic exam was not done however she was noted to have dark red blood on her pad but was not actively bleeding. tracing was category 1 and she was noted to be dimitri every 2 to 4 minutes. Given her history of placental shelf ultrasound was done and fetus was noted to be in breech presentation and placental shelf was noted to be intact and away from the cervix. Speculum exam showed the cervix to be 1 to 2 cm and gentle digital exam showed the cervix to be 2 to 3 cm 70% effaced with no presenting part. ----> She was admitted to labor and delivery and observed from 1 AM until 5 PM. She was started on vancomycin for GBS prophylaxis given allergies to penicillin. She was started on magnesium sulfate for seizure prophylaxis and given her first dose of steroids for lung maturity. She was given a total of 3 doses of terbutaline as well as 2 doses of Procardia during this 4-hour timeframe however contractions would space out minimally and then return to every 2 to 3 minutes. Patient was uncomfortable and appeared to be in active labor in terms of discomfort. She was given fentanyl to help with pain. She initially made minimal cervical change after 2 hours however at 5 PM she was noted to be 5 cm 100% effaced with a bulging bag. Fetus was noted to be in transverse presentation and decision was made to proceed with delivery for malpresentation and active labor. Anesthesia and overnight houseperson was notified and present. This was discussed with patient and consents were obtained for and patient was taken to the operating room. PROCEDURE: After consent was obtained, patient was taken to the operating room where spinal anesthesia was placed without difficulty. She was placed supine on the table with a left lateral wedge. Britt catheter and SCDs were already in place as patient had been on magnesium. The abdomen was shaved and then prepped with duo prep. She was draped in a sterile fashion. After checking adequacy of anesthesia, a Pfannenstiel incision was made 2 cm above the pubic symphysis. The incision was carried down to the fascia using the Bovie. The fascia was nicked in the midline and the fascial incision was extended laterally using curved Mayos. The inferior aspect of the fascia was grasped with sirena clamps and dissected off from the underlying rectus muscle. This was repeated again superiorly without any difficulty. The rectus muscle was . A rahul was made in the peritoneum and the peritoneal incision was carried inferiorly taking care to proceed in layers so as to avoid the bladder. The peritoneal incision was extended superiorly as well. No adhesions were noted from the uterus to the anterior abdominal wall. The uterus was noted to be rotated to the left. The bladder peritoneum was grasped with smooth forceps a bladder flap was created. the bladder blade was replaced thus protecting the bladder. A LOW TRANSVERSE UTERINE INCISION was made with a scalpel till the amniotic membrane was reached. The uterine incision was then extended laterally using bandage scissors. Amniotomy was done with Allis clamps and clear amniotic fluid was drained. Initially a hand and a foot was presenting and the heart was gently placed back into the uterus and the foot was followed back to breech was reached and then the second foot was crossed and bilateral feet were delivered until the level of the breech. Body and feet were wrapped in a blue towel and remained on body and arms delivered without any difficulty followed by the head. The nose and mouth were suctioned, the umbilical cord was clamped and cut and the baby was handed off to the waiting overnight houseperson, Dr. Guzman. The placenta was delivered spontaneously with fundal massage. It was noted to be intact and was discarded. The interior of the uterus was cleaned of all clot and debris and was noted to be dimitri well. The uterus was exteriorized. The uterine incision was closed with 0 Vicryl in a running interlocking manner. Good hemostasis and reapproximation was obtained. A second imbricating layer was placed. The abdomen was irrigated and the gutters were cleaned of clot and debris. Normal tubes and ovaries were noted bilaterally. The uterus was placed back into the abdomen and uterine incision was noted to be hemostatic. Surgicel was placed over the incision. The peritoneum was closed with a 2-0 plain in a continuous stitch. The rectus muscle was reapproximated with 2-0 plain suture in a mattress stitch. Good hemostasis was noted in the rectus muscle layer. The fascia was inspected for any defects and none were found and the fascia was closed with 0 Vicryl in continuous stitch. The subcutaneous plane was then irrigated and hemostasis was obtained using the Bovie. The subcutaneous plane was then reapproximated using 2-0 plain suture in a continuous manner. The skin was then closed with 4-0 Monocryl in a subcuticular fashion. Good reapproximation and hemostasis was noted. Steri-Strips were applied. The incision was dressed with Telfa ,ABD and paper tape. The fundus was noted to be firm at the end of the procedure and excess blood was expressed from the vagina. The patient was left to recover in a stable condition. This documentation was created by [employer] director on air software (known for inherent director on air error). Every effort was made to assure accuracy of director on air. Any obvious errors or omissions should be clarified with the author of the document. Pre-op Diagnosis: labor
[2021-03-22] MEDS: prenatal vitamin Capsule 1 CAP PO (10:21)
[2021-03-22] MEDS: docusate sodium 100 mg Capsule PO (10:21)
[2021-03-22] MEDS: lanolin oint 7 gm 1 APPLIC TOPICAL (12:39)
[2021-03-22] MEDS: ibuprofen 800 mg tablet PO ×3 (16:24→23:59)
[2021-03-22] MEDS: HYDROcodone-acetaminophen 5-325 mg Tablet PO ×2 (16:40→21:05)
[2021-03-22 20:00] LABS: Hematocrit 34.4 % (37.0-47.0); Hemoglobin 11.2 g/dL (11.5-15.3); Mean Corpuscular HGB Conc 32.6 g/dL (30.0-36.0); Mean Corpuscular Hemoglobin 28.9 pg (28.0-34.0); Mean Corpuscular Volume 88.7 fl (81-99); Mean Platelet Volume 11.5 fL (7.4-10.4); Platelet Count 206 10^3/cmm (130-400); Red Blood Count 3.88 10^6/uL (4.1-5.3); Red Cell Distribution Width 13.5 % (12.1-15.1); White Blood Count 20.5 10^3/uL (4.0-10.0)
[2021-03-22] MEDS: diphenhydrAMINE 50 mg/mL SDV 1mL 25 MG IVP (21:05)
[2021-03-23] VITALS: BP 116/76; PULSE 68; RESP 15; TEMP 36.7; O2SAT 99
[2021-03-23 00:54] VITALS: PULSE 68; RESP 15; TEMP 36.7; O2SAT 99
[2021-03-23] MEDS: HYDROcodone-acetaminophen 5-325 mg Tablet PO ×3 (02:04→12:18)
[2021-03-23 04:00] VITALS: BP 105/59; PULSE 75; RESP 16; TEMP 36.8; O2SAT 97
--- NOTE | 2021-03-23 07:41 | PC.NURSE ---
Patient walked 8 laps around department overnight
[2021-03-23] MEDS: prenatal vitamin Capsule 1 CAP PO (08:38)
[2021-03-23] MEDS: ibuprofen 800 mg tablet PO (08:38)
[2021-03-23] MEDS: docusate sodium 100 mg Capsule PO (08:39)
[2021-03-23 09:53] VITALS: BP 111/60; PULSE 75; RESP 16; TEMP 36.9
--- NOTE | 2021-03-23 11:42 | P.DS_ITS ---
Discharge Providers JOURNEYMAN SHEET METAL WORKER Date of Admission: 03/22/21 05:30 Date of Discharge: 03/28/21 Attending Provider at Admission: Huma Guerrero MD Attending Provider at Discharge: Huma Guerrero MD Primary Care Provider: Ms Craig is a 31-year-old 4 para 1-0-2-1 at 30 weeks and 5 days who presented to labor and delivery at 12:30 AM on 03/22/2021 with reports of vaginal bleeding and contractions. She had been seen before on Labor and Delivery on 03/20/2021 with reports of contractions at which point she was closed thick and high with a regular contractions. She was given a single dose of terbutaline after which her contractions spaced out and she made no cervical change and she was discharged home. She stated that on 03/21/2021 she just had irregular contractions but these were not concerning. She started to dimitri more regularly at 5 PM and wanted to try to sleep to see if this would resolve her pain. She states that she woke up at 11:30 PM to go to the bathroom and felt stronger contractions like the evening before. When she used the bathroom she noticed blood on her toilet paper and noticed that there was blood in the toilet bowl and she called Labor and Delivery and presented for evaluation. Upon initial evaluation at 12:50 AM pelvic exam was not done however she was noted to have dark red blood on her pad but was not actively bleeding. tracing was category 1 and she was noted to be dimitri every 2 to 4 minutes. Given her history of placental shelf ultrasound was done and fetus was noted to be in breech presentation and placental shelf was noted to be intact and away from the cervix. Speculum exam showed the cervix to be 1 to 2 cm and gentle digital exam showed the cervix to be 2 to 3 cm 70% effaced with no presenting part. ----> She was admitted to labor and delivery and observed from 1 AM until 5 PM. She was started on vancomycin for GBS prophylaxis given allergies to penicillin. She was started on magnesium sulfate for seizure prophylaxis and given her first dose of steroids for lung maturity. She was given a total of 3 doses of terbutaline as well as 2 doses of Procardia during this 4-hour timeframe however contractions would space out minimally and then return to every 2 to 3 minutes. Patient was uncomfortable and appeared to be in active labor in terms of discomfort. She was given fentanyl to help with pain. She initially made minimal cervical change after 2 hours however at 5 PM she was noted to be 5 cm 100% effaced with a bulging bag. Fetus was noted to be in transverse presentation and decision was made to proceed with delivery for malpresentation and active labor. Anesthesia and graphic art sales representative was notified and present. This was discussed with patient and consents were obtained for and patient was taken to the operating room. HOSPITAL COURSE: She underwent an uncomplicated primary delivery on 03/22/2021-please refer to operative report for details. Her baby was transferred out on day of life 1 because of prematurity. She did well on day 0 and was ambulating well, tolerating Wilber and then full liquid diet, voiding freely, passing flatus. She was pumping colostrum without any difficulty. Pain was well-controlled with by mouth pain medication. She denied nausea, vomiting, fever, chills, shortness of breath, leg pain. She had moderate vaginal bleeding. On day # 1 she continued to do well with stable vital signs and stable hemoglobin at 11.2. She ambulated well and pain was well controlled and she passed flatus tolerating regular diet. She was discharged home on day 1 in a stable condition, as she desired early discharge to be with her baby in [place]. Warning signs for endometritis, wound infection, mastitis, DVT/PE were reviewed with her. Post delivery activity restrictions were also reviewed with her at all her questions were answered to her satisfaction. Plan is to use the Mirena for contraception which will be placed at her visit. EXAM AT DISCHARGE: Gen.: No acute distress Heart: S1-S2 heard, regular rate and rhythm Lungs: Clear to auscultation bilaterally Abdomen: Soft, fundus firm below umbilicus, tenderness around incision. Incision: Clean dry and intact with Steri-Strips. Legs: No calf tenderness, trace bilateral pitting pedal edema. CONDITION AT DISCHARGE: Stable This documentation was created by [employer] dramatic coach software (known for inherent dramatic coach error). Every effort was made to assure accuracy of dramatic coach. Any obvious errors or omissions should be clarified with the author of the document. Diagnoses at Discharge Discharge Diagnosis (1) Placental abnormality, antepartum: Status: Acute (2) COVID-19 affecting , antepartum: Status: Acute (3) Supervision of other normal : Status: Acute (4) labor: Status: Acute Reason for Visit Reason for Visit: bleeding Information Peripartum Data: Infant Delivery Method: Physical Exam Urinary Catheter Management^: Britt: Cath Placed During This Visit: yes, but has since been removed by the nurse Reason for Continuing Indwelling Catheter: Decision to DC Catheter Urinary Catheter Date of Insertion: 03/22/21 Urinary Catheter Time of Insertion: 01:26 Date Urinary Catheter Removed: 03/22/21 Time Urinary Catheter Discontinued: 17:30 History History History 4 Term 1 Miscarriages/Ectopic 2 1 Living Children 2 Other History: 3 Para 1122, x 1, CD X 1 SAB x 2 1--> April/2016--early first trimester, no d & C required 2--> 01/14/2017, female,(Rinaldi), 6 lbs 12.5 ozs, 37 3/7 wks, epidural, vaginal delivery by Dr. Heath at [facility], [place], [place]. Delivery was uncomplicated.she states that she was diagnosed with gestational diabetes and was on metformin during the . Second-degree perineal tear and she gained about 24 pounds during the whole 3-->01/2020, First Trimester SAB with Cytotec---complicated with persistent beta hCGs and had a D&C. 4--> 03/22/2021, female(Constanza) weighing 4 pounds 4 ounces, active labor at 30 weeks and 5 days, primary low transverse delivery for active labor in transverse presentation. Performed by Dr. Cevallos at [facility]. Discharge Data Data Completed and Pending: Completed Studies During Hospitalization Category Date Time Status US OB limited [id number] Stat Ultrasound 03/22/21 00:49 Completed Pending at discharge Category Date Time Status Pathology: Surgic al [PTH] Routine Pth 03/22/21 07:46 Received Labs from last 24 hours 03/22/21 19:50 WBC 20.5 H RBC 3.88 L Hgb 11.2 L Hct 34.4 L MCV 88.7 MCH 28.9 MCHC 32.6 RDW 13.5 Plt Count 206 MPV 11.5 H Vitals: Last Vital Signs Temp 98.5 F 03/23/21 09:53 Pulse 75 03/23/21 09:53 Resp 16 03/23/21 09:53 BP 111/60 03/23/21 09:53 Pulse Ox 97 03/23/21 04:00 Results PURCHASING INTERNSHIP Labs Beta-hCG trend 01/10/2020-751 01/16/2020-3057 01/27/2020-3413 (Cytotec and SAB) 02/07/2020-175 03/05/2020-327 03/13/2020-233 03/19/2020-213 03/30/20(D&C)--->105 04/04/20--->1--negative Discharge Plan Discharge Patient Disposition: Home Condition: Stable Prescriptions: New ibuprofen 800 mg tablet 800 mg PO Q8H Qty: 30 RF: 0 docusate sodium 100 mg Capsule 100 mg PO BID PRN (Reason: constipation) Qty: 30 RF: 0 hydrocodone-acetaminophen 5-325 mg tablet 1 tab PO Q6H Qty: 25 RF: 0 Continued prenat.vits,layton,[id number] Tablet 1 tab PO DAILY RF: 0 Discharge Orders: Discharge Order (Routine); Ordered 03/23/21 Ordered By: Huma Guerrero Referrals: Huma Guerrero MD [Physician] - 04/10/21 1:45 pm (Your 2 week incision check is scheduled for 04/10/21 @1:45. Your 6 week post- visit is scheduled for 05/06/21 @9:45. ) Discharge Diet: Regular Discharge Activity: Limit activity as instructed Patient Instructions: Bleeding (DC), Preeclampsia and Eclampsia After Delivery (GEN), OB [facility], OB Discharge Report, OB Food/Drug Interaction Guide, Opioid Safety, OB Home Care Activity Restrictions/Additional Instructions: Pelvic rest for 6 weeks, no heavy lifting, 2-week incision check and 6-week visit with Dr. 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
[2021-03-23] MEDS: tetanus-dipt-pertussis 0.5 mL SDV IM (12:17)
[2021-03-23 12:44] VITALS: BP 118/68; PULSE 70; RESP 18; TEMP 36.7
== END 2021-03-23 12:31 | disposition home or self-care (01) | DRG 788 ==
LOC: OPOB 06:12 → OBGYN 06:12
PROVIDERS: Admitting Provider Obstetrics & Gynecology; PCP Family Medicine; Visit Provider Obstetrics & Gynecology
PROC: 10D00Z1 Extraction of Products of Conception, Low, Open Approach (ICD-10-PCS; CPT 59514; principal; 2021-03-22 05:30)
DX: O60.14X0 Preterm labor third trimester with preterm delivery third trimester, not applicable or unspecified (principal); O32.1XX0 Maternal care for breech presentation, not applicable or unspecified; Z37.0 Single live birth; O43.113 Circumvallate placenta, third trimester; Z3A.30 30 weeks gestation of pregnancy; Z86.16 Personal history of COVID-19
CPT/HCPCS: 36415; 51702; 59025; 59409; 76815; 80053; 85025; 85027; 88307; 90471; 90715; 96372; 96374; 96376; 98960; 99211; J0702; J1200; J1580; J2250; J2274; J2765; J3010; J3105; J3370; J3475; J3490; J7030

== ENCOUNTER → 2021-04-08 13:38 | Outpatient (BNVA) | payer OTHER, SELFPAY | PROVIDERS: PCP Family Medicine; Visit Provider Obstetrics & Gynecology | DX: L02.215 Cutaneous abscess of perineum (principal) | CPT/HCPCS: 87070 ==

== ENCOUNTER → 2021-04-30 12:00 | Outpatient (BNVA) | payer OTHER, SELFPAY | PROVIDERS: PCP Family Medicine; Visit Provider Nurse Practitioner Family | DX: Z20.822 Contact with and (suspected) exposure to COVID-19 (principal); J06.9 Acute upper respiratory infection, unspecified | CPT/HCPCS: 87635 ==

== ENCOUNTER → 2021-05-13 15:08 | Outpatient (BNVA) | payer OTHER, SELFPAY | PROVIDERS: PCP Family Medicine; Visit Provider Obstetrics & Gynecology | DX: Z30.9 Encounter for contraceptive management, unspecified (principal) | CPT/HCPCS: 81025 ==

== ENCOUNTER → 2023-09-17 10:53 | Outpatient (BNVA) | payer OTHER, SELFPAY | PROVIDERS: PCP Family Medicine; Visit Provider Nurse Practitioner Women's Health | DX: Z32.00 Encounter for pregnancy test, result unknown (principal) | CPT/HCPCS: 84702 ==

== ENCOUNTER → 2023-09-21 09:21 | Outpatient (BNVA) | payer OTHER, SELFPAY | PROVIDERS: PCP Family Medicine; Visit Provider Nurse Practitioner Women's Health | DX: N92.6 Irregular menstruation, unspecified (principal) | CPT/HCPCS: 84702 ==

== ENCOUNTER → 2023-09-23 09:00 | Outpatient (BNVA) | payer OTHER, SELFPAY | PROVIDERS: PCP Family Medicine; Visit Provider Nurse Practitioner Women's Health | DX: O20.0 Threatened abortion (principal); O03.4 Incomplete spontaneous abortion without complication; Z3A.00 Weeks of gestation of pregnancy not specified | CPT/HCPCS: 84702 ==

== ENCOUNTER → 2023-09-25 09:21 | Outpatient (BNVA) | payer OTHER, SELFPAY | PROVIDERS: PCP Family Medicine; Visit Provider Nurse Practitioner Women's Health | DX: O36.80X0 Pregnancy with inconclusive fetal viability, not applicable or unspecified (principal); Z3A.00 Weeks of gestation of pregnancy not specified | CPT/HCPCS: 84144; 84702 ==

== ENCOUNTER → 2023-10-02 11:00 | Outpatient (BNVA) | payer OTHER, SELFPAY | PROVIDERS: PCP Family Medicine; Visit Provider Nurse Practitioner Women's Health | DX: O36.80X0 Pregnancy with inconclusive fetal viability, not applicable or unspecified (principal); Z3A.00 Weeks of gestation of pregnancy not specified | CPT/HCPCS: 84702 ==

== ENCOUNTER 2023-10-13 07:06 | Outpatient (CLI) | payer OTHER, SELFPAY ==
--- NOTE | 2023-10-13 07:15 | USR_ITS ---
PROCEDURE INFORMATION: Exam: US First Trimester, Transabdominal and US , Transvaginal Exam date and time: 10/13/2023 7:11 AM Age: 33 years old Clinical indication: Screening exam; Routine US, uterus; Prior surgery; Surgery date: 6+ months; Surgery type: 1 ; Additional info: O36.80x0 - with inconclusive viability, n. . . LABS AND CLINICAL REPORTS: Last menstrual period start date: 08/21/2023 Gestational age (Established): 7 w 4 d Estimated due date (Established): 05/27/2024 TECHNIQUE: Imaging protocol: Real-time transabdominal obstetrical ultrasound of the maternal pelvis and a first trimester , less than 14 weeks 0 days, with image documentation. Transvaginal imaging was used for better evaluation of the fetus, adnexa, and/or cervix. COMPARISON: US OB limited [id number] 03/22/2021 1:06 AM FINDINGS: GESTATION: Gestation: Yolk sac measures 4.3 mm. Embryonic/ heart rate: 163 bpm Extra-embryonic membranes/Placenta: There is a small subchorionic hemorrhage measuring 6 x 16 x 4 mm in size. Amniotic/Chorionic fluid: Amniotic and extra-amniotic fluid are normal for gestational age. BIOMETRY: [place]-rump length: 1.49 cm 7 weeks 6 days Mean sac diameter: 2.37 cm. EGA (MSD) is 7 w 3 d MATERNAL: Uterus: Unremarkable. The uterus measures 8.9 x 6.3 x 5.9 cm in size. Cervix: Unremarkable. Endocervical canal is closed. Right ovary/adnexa: The right ovary measures 3 x 1.9 x 2.8 cm in size. There is a corpus luteum cyst measuring 2.2 cm in size. Left ovary/adnexa: The left ovary measures 2.2 x 2 x 1.9 cm in size. Intraperitoneal space: No intraperitoneal free fluid. US/US OB <=14 wk fetus w transvag IMPRESSION: 1. Single living intrauterine as above.
== END 2023-10-13 07:07 | disposition home or self-care (01) ==
LOC: RAD 07:06
PROVIDERS: PCP Family Medicine; Visit Provider Nurse Practitioner Women's Health
DX: O36.80X0 Pregnancy with inconclusive fetal viability, not applicable or unspecified (principal)
CPT/HCPCS: 76801; 76817

== ENCOUNTER 2023-11-19 11:30 | Outpatient (CLI) | payer OTHER, SELFPAY ==
--- NOTE | 2023-11-19 11:30 | US_ITS ---
WS: [id number] EARLY OBSTETRICAL ULTRASOUND (<14 WEEKS). HISTORY: O41.8X90 - Other specified disorders of amniotic fluid an... COMPARISON: 10/13/2023 Single intrauterine gestational sac is identified. Cardiac activity at 159 BPM. [place]-rump length blayne sures 6.3 cm which corresponds to a gestation of 12w5d. Normal-appearing yolk sac and amnion demonstr ated. No subchorionic hemorrhage. Previously described subchorionic hemorrhage is not identified to day. No free fluid. Normal size ovaries with no mass. US/US OB <=14 wk fetus w transvag IMPRESSION: 1. Single intrauterine gestation of 12w5d with an EDC of 05/28/2024. Appropria te growth since the prior ultrasound. 2. Normal heart activity. 3. Resolved subchorionic hemorrhage.
== END 2023-11-19 11:31 | disposition home or self-care (01) ==
LOC: RAD 11:31
PROVIDERS: PCP Family Medicine; Visit Provider Nurse Practitioner Women's Health
DX: O26.891 Other specified pregnancy related conditions, first trimester (principal); Z3A.12 12 weeks gestation of pregnancy; O41.8X90 Other specified disorders of amniotic fluid and membranes, unspecified trimester, not applicable or unspecified; O09.891 Supervision of other high risk pregnancies, first trimester; O46.8X9 Other antepartum hemorrhage, unspecified trimester
CPT/HCPCS: 76801; 76817; 80307; 84315; 85025; 86592; 86762; 86803; 86850; 86900; 87086; 87340; 87806

== ENCOUNTER → 2023-11-20 08:54 | Outpatient (BNVA) | payer OTHER, SELFPAY | PROVIDERS: PCP Family Medicine; Visit Provider Obstetrics & Gynecology | DX: Z12.4 Encounter for screening for malignant neoplasm of cervix (principal); O09.899 Supervision of other high risk pregnancies, unspecified trimester | CPT/HCPCS: 84315; 87491; 87591; 87624 ==

== ENCOUNTER → 2023-12-15 08:56 | Outpatient (BNVA) | payer OTHER, SELFPAY | PROVIDERS: PCP Family Medicine; Visit Provider Obstetrics & Gynecology | DX: Z87.410 Personal history of cervical dysplasia (principal); Z3A.00 Weeks of gestation of pregnancy not specified | CPT/HCPCS: 76817; 82105; 82950; 84315 ==

== ENCOUNTER 2023-12-17 07:22 | Outpatient (CLI) | payer OTHER, SELFPAY ==
[2023-12-17 07:56] LABS: Glucose Fasting Gestational 92 mg/dL (65-115)
[2023-12-17 09:34] LABS: Glucose 1 Hour 241 mg/dL
[2023-12-17 10:19] LABS: Glucose 2 Hour 165 mg/dL
[2023-12-17 10:58] LABS: Glucose Point of Care 68 mg/dL (70-110)
[2023-12-17 11:24] LABS: Glucose 3 Hour 84 mg/dL
== END 2023-12-17 07:23 | disposition home or self-care (01) ==
LOC: OPOB 07:23
PROVIDERS: PCP Family Medicine; Visit Provider Obstetrics & Gynecology
DX: O09.292 Supervision of pregnancy with other poor reproductive or obstetric history, second trimester (principal); Z3A.00 Weeks of gestation of pregnancy not specified; Z86.32 Personal history of gestational diabetes
CPT/HCPCS: 36416; 82951; 82952; 82962

== ENCOUNTER → 2023-12-30 08:04 | Outpatient (BNVA) | payer OTHER, SELFPAY | PROVIDERS: PCP Family Medicine; Visit Provider Obstetrics & Gynecology | DX: Z86.001 Personal history of in-situ neoplasm of cervix uteri (principal); Z36.86 Encounter for antenatal screening for cervical length | CPT/HCPCS: 76817 ==

== ENCOUNTER → 2024-01-18 09:43 | Outpatient (BNVA) | payer OTHER, SELFPAY | PROVIDERS: PCP Family Medicine; Visit Provider Obstetrics & Gynecology | DX: Z36.2 Encounter for other antenatal screening follow-up (principal); Z36.86 Encounter for antenatal screening for cervical length; Z3A.21 21 weeks gestation of pregnancy | CPT/HCPCS: 76805; 76817 ==

== ENCOUNTER → 2024-03-18 08:45 | Outpatient (BNVA) | payer OTHER, SELFPAY | PROVIDERS: PCP Family Medicine; Visit Provider Obstetrics & Gynecology | DX: O09.521 Supervision of elderly multigravida, first trimester (principal); O24.319 Unspecified pre-existing diabetes mellitus in pregnancy, unspecified trimester; O09.899 Supervision of other high risk pregnancies, unspecified trimester | CPT/HCPCS: 84315; 85025 ==

== ENCOUNTER 2024-03-22 11:19 | Outpatient (CLI) | payer OTHER, SELFPAY ==
[2024-03-22 12:51] LABS: Free T4 Free Thyroxine 0.72 ng/dL (0.82-1.77); Thyroid Stimulating Hormone 1.25 uIU/mL (0.27-4.20)
== END 2024-03-22 11:20 | disposition home or self-care (01) ==
LOC: LAB 11:20
PROVIDERS: PCP Family Medicine; Visit Provider Nurse Practitioner Women's Health
DX: R00.2 Palpitations (principal)
CPT/HCPCS: 36415; 84439; 84443

== ENCOUNTER 2024-04-04 09:50 | Outpatient (CLI) | payer OTHER, SELFPAY ==
[2024-04-04 08:45] VITALS: BMI 33.2
[2024-04-04 10:03] VITALS: BP 124/78; PULSE 93
== END 2024-04-04 10:25 | disposition home or self-care (01) ==
LOC: OPOB 09:56 → OBGYN 09:57
PROVIDERS: PCP Family Medicine; Visit Provider Obstetrics & Gynecology
DX: O24.419 Gestational diabetes mellitus in pregnancy, unspecified control (principal); Z3A.00 Weeks of gestation of pregnancy not specified
CPT/HCPCS: 59025

== ENCOUNTER 2024-04-07 10:49 | Outpatient (CLI) | payer OTHER, SELFPAY ==
[2024-04-07 10:54] VITALS: BP 127/76; PULSE 99
[2024-04-07 11:02] VITALS: RESP 18
[2024-04-07 11:14] VITALS: BP 123/78; PULSE 110
== END 2024-04-07 11:30 ==
LOC: OPOB 10:49 → OBGYN 10:50
PROVIDERS: PCP Family Medicine; Visit Provider Obstetrics & Gynecology
DX: O24.419 Gestational diabetes mellitus in pregnancy, unspecified control (principal); Z3A.00 Weeks of gestation of pregnancy not specified
CPT/HCPCS: 59025

== ENCOUNTER 2024-04-08 17:40 | Outpatient (CLI) | payer OTHER, SELFPAY ==
[2024-04-08] VITALS (15 sets, daily range): BP systolic 97–127; BP diastolic 59–80; PULSE 85–112; BMI 33.2; BMI 44.9
[2024-04-08] MEDS: ondansetron 2 mg/ML SDV 2 mL 4 MG IVP (18:17)
[2024-04-08] MEDS: lactated ringers 1,000 ML 999 ML IV (18:17)
[2024-04-08] MEDS: NIFEdipine 10 mg Capsule PO (21:45)
[2024-04-09 00:18] VITALS: BP 118/69; PULSE 87
[2024-04-09 00:20] VITALS: BP 118/69; PULSE 89; RESP 15; O2SAT 100
== END 2024-04-09 00:20 | disposition home or self-care (01) ==
LOC: OPOB 17:42 → OBGYN 17:42
PROVIDERS: PCP Family Medicine; Visit Provider Obstetrics & Gynecology
DX: O21.9 Vomiting of pregnancy, unspecified (principal); Z3A.00 Weeks of gestation of pregnancy not specified; R19.7 Diarrhea, unspecified
CPT/HCPCS: 59025; 99211; J2405; J7120

== ENCOUNTER 2024-04-10 22:08 | Outpatient (CLI) | payer OTHER, SELFPAY ==
[2024-04-10 22:18] VITALS: BP 122/72; PULSE 81
[2024-04-10 22:34] VITALS: BP 112/73; PULSE 90
[2024-04-10 22:57] LABS: Glucose Point of Care 110 mg/dL (70-110)
[2024-04-10 23:03] LABS: Basophils % 0.2 %; Eosinophils # 0.1 10^3/uL (0.0-0.8); Eosinophils % 1.3 %; Hematocrit 35.7 % (36-47); Lymphocytes # 1.5 10^3/uL (0.8-4.8); Lymphocytes % 23.6 %; Mean Corpuscular HGB Conc 32.2 g/dL (30-55); Mean Corpuscular Hemoglobin 27.9 pg (27-33); Mean Corpuscular Volume 86.7 fl (85-98); Mean Platelet Volume 11.5 fL (7.4-10.4); Monocytes # 0.7 10^3/uL (0.2-0.9); Monocytes % 10.3 %; Neutrophils # 4.03 10^3/uL (1.8-7.7); Neutrophils % 63.7 %; Nucleated Red Blood Cells % 0 %; Platelet Count 195 10^3/cmm (157-399); Red Blood Count 4.12 10^6/uL (3.85-5.65); Red Cell Distribution Width 14.2 % (12.1-15.1); White Blood Count 6.32 10^3/uL (3.29-11.43)
[2024-04-10 23:19] VITALS: BP 113/68; PULSE 82
[2024-04-10 23:29] LABS: Alanine Aminotransferase 11 U/L (0-33); Albumin Level 3.1 g/dL (3.5-5.2); Alkaline Phosphatase 108 U/L (35-105); Anion Gap 16.7 (5-19); Aspartate Amino Transferase 16 U/L (0-32); Blood Urea Nitrogen 5 mg/dL (6-20); Calcium 8.7 mg/dL (8.5-10.5); Carbon Dioxide 19 mmol/L (22-29); Chloride 104 mmol/L (98-107); Globulin 2.7 g/dL (1.3-4.6); Glomerular Filtration Rate 140.4 mL/min (90-130); Glucose 114 mg/dL (65-115); Osmolality Calculated 280 mOsm/kg (285-295); Potassium 3.7 mmol/L (3.5-5.1); Sodium 136 mmol/L (136-145); Total Bilirubin 0.2 mg/dL (0.15-1.2); Total Protein 5.8 g/dL (6.6-8.7)
[2024-04-10 23:35] VITALS: BP 116/76; PULSE 74
[2024-04-10 23:49] VITALS: BP 115/74; PULSE 81
[2024-04-10] MEDS: diphenoxylate/atropine Tablet 1 TAB PO (23:57)
[2024-04-10] MEDS: betamethasone susp 6 mg/mL 1 mL (per mL) 12 MG IM (23:57)
[2024-04-11 00:50] VITALS: BMI 33.3
[2024-04-11 01:22] VITALS: BP 108/63; PULSE 67
[2024-04-11 02:00] VITALS: BP 115/74; PULSE 81; RESP 18
[2024-04-11] MEDS: NIFEdipine ER (24 hr) 30 mg Tablet PO (02:17)
--- NOTE | 2024-04-11 23:16 | USR_ITS ---
PROCEDURE INFORMATION: Exam: US , Limited Exam date and time: 04/11/2024 12:39 AM Age: 34 years old Clinical indication: Screening exam; Other: Cervical length; LABS AND CLINICAL REPORTS: Gestational age (Established): 33 w 3 d Estimated due date (Established): 05/27/2024 TECHNIQUE: Imaging protocol: Real-time ultrasound of the maternal uterus with image documentation. Exam focused on the clinical indication. COMPARISON: US OB >=14 wk fetus w transvag 01/18/2024 9:46 AM FINDINGS: Gestation: Intrauterine gestation. heart rate: 131 bpm Placenta: The placenta is fundal. No evidence of previa. MATERNAL: Cervix: Cervical length measures 4.1-4.8 cm. Few small nabothian cysts. The cervix is closed with potential early funneling on series 1 image 200. This should be followed up. US/US OB lmt with transvaginal IMPRESSION: 1. The cervix is closed with potential early funneling on series 1 image 200. This should be followed up with OB. 2. Single live IUP. As above.
== END 2024-04-11 02:20 | disposition home or self-care (01) ==
LOC: OPOB 22:09 → OBGYN 22:12
PROVIDERS: PCP Family Medicine; Visit Provider Obstetrics & Gynecology
DX: O26.899 Other specified pregnancy related conditions, unspecified trimester (principal); Z3A.00 Weeks of gestation of pregnancy not specified; R10.9 Unspecified abdominal pain
CPT/HCPCS: 36416; 76815; 76817; 80053; 82962; 85025; 96372; J0702

== ENCOUNTER → 2024-04-11 08:07 | Outpatient (BNVA) | payer OTHER, SELFPAY | PROVIDERS: PCP Family Medicine; Visit Provider Obstetrics & Gynecology | DX: O09.899 Supervision of other high risk pregnancies, unspecified trimester (principal) | CPT/HCPCS: 76819 ==

== ENCOUNTER 2024-04-12 10:58 | Outpatient (CLI) | payer OTHER, SELFPAY ==
[2024-04-12 10:50] VITALS: BMI 33.2
[2024-04-12] MEDS: betamethasone susp 6 mg/mL 1 mL (per mL) 12 MG IM (11:09)
== END 2024-04-12 11:10 | disposition home or self-care (01) ==
LOC: OPOB 10:59 → OBGYN 11:00
PROVIDERS: PCP Family Medicine; Visit Provider Obstetrics & Gynecology
DX: O26.899 Other specified pregnancy related conditions, unspecified trimester (principal); Z3A.00 Weeks of gestation of pregnancy not specified
CPT/HCPCS: 96372; 99211; J0702

== ENCOUNTER 2024-04-14 10:58 | Outpatient (CLI) | payer OTHER, SELFPAY ==
[2024-04-14 11:00] VITALS: RESP 17; BMI 33.2
[2024-04-14 11:04] VITALS: BP 134/72; PULSE 81
[2024-04-14 11:19] VITALS: BP 110/70; PULSE 90
[2024-04-14 11:36] VITALS: BP 105/50; PULSE 85
== END 2024-04-14 11:45 | disposition home or self-care (01) ==
LOC: OPOB 10:58 → OBGYN 10:59
PROVIDERS: PCP Family Medicine; Visit Provider Obstetrics & Gynecology
DX: O24.419 Gestational diabetes mellitus in pregnancy, unspecified control (principal); Z3A.00 Weeks of gestation of pregnancy not specified
CPT/HCPCS: 59025; 99211

== ENCOUNTER → 2024-04-15 10:26 | Outpatient (BNVA) | payer OTHER, SELFPAY | PROVIDERS: PCP Family Medicine; Visit Provider Nurse Practitioner Women's Health | DX: O09.893 Supervision of other high risk pregnancies, third trimester (principal) | CPT/HCPCS: 84315 ==

== ENCOUNTER 2024-04-18 10:04 | Outpatient (CLI) | payer OTHER, SELFPAY ==
[2024-04-18 10:08] VITALS: RESP 18
[2024-04-18 10:09] VITALS: BP 128/77; PULSE 76
[2024-04-18 10:19] VITALS: RESP 18; BMI 33.3
[2024-04-18 10:23] VITALS: BP 130/81; PULSE 95
== END 2024-04-18 10:34 ==
LOC: OPOB 10:04 → OBGYN 10:05
PROVIDERS: PCP Family Medicine; Visit Provider Obstetrics & Gynecology
DX: O09.529 Supervision of elderly multigravida, unspecified trimester (principal); X58.XXXA Exposure to other specified factors, initial encounter
CPT/HCPCS: 59025

== ENCOUNTER → 2024-04-19 09:46 | Outpatient (BNVA) | payer OTHER, SELFPAY | PROVIDERS: PCP Family Medicine; Visit Provider Obstetrics & Gynecology | DX: O09.899 Supervision of other high risk pregnancies, unspecified trimester (principal); Z3A.00 Weeks of gestation of pregnancy not specified | CPT/HCPCS: 76819 ==

== ENCOUNTER 2024-04-20 10:40 | Outpatient (CLI) | payer OTHER, SELFPAY ==
[2024-04-20 10:52] VITALS: RESP 18; BMI 32.8
[2024-04-20 11:04] LABS: Actim Prom Negative
== END 2024-04-20 11:11 | disposition home or self-care (01) ==
LOC: OPOB 10:41 → OBGYN 10:42
PROVIDERS: PCP Family Medicine; Visit Provider Obstetrics & Gynecology
DX: O26.899 Other specified pregnancy related conditions, unspecified trimester (principal); Z3A.00 Weeks of gestation of pregnancy not specified
CPT/HCPCS: 76815; 84112; 99211

== ENCOUNTER 2024-04-21 10:40 | Outpatient (CLI) | payer OTHER, SELFPAY ==
[2024-04-21 10:58] VITALS: BP 138/86; RESP 18
[2024-04-21 11:08] VITALS: BP 112/60; PULSE 89
== END 2024-04-21 11:20 ==
LOC: OPOB 10:41 → NUR 10:48
PROVIDERS: PCP Family Medicine; Visit Provider Obstetrics & Gynecology
DX: O24.419 Gestational diabetes mellitus in pregnancy, unspecified control (principal); Z3A.00 Weeks of gestation of pregnancy not specified
CPT/HCPCS: 59025; 84315

== ENCOUNTER → 2024-04-25 08:02 | Outpatient (BNVA) | payer OTHER, SELFPAY | PROVIDERS: PCP Family Medicine; Visit Provider Obstetrics & Gynecology | DX: O09.899 Supervision of other high risk pregnancies, unspecified trimester (principal); Z3A.00 Weeks of gestation of pregnancy not specified | CPT/HCPCS: 76819 ==

== ENCOUNTER 2024-04-25 10:25 | Outpatient (CLI) | payer OTHER, SELFPAY ==
[2024-04-25 10:33] VITALS: BP 138/75; PULSE 82
[2024-04-25 10:48] VITALS: BP 124/71; PULSE 88
[2024-04-25 10:49] VITALS: BMI 33.0
[2024-04-25 10:57] VITALS: BP 124/71; PULSE 90; RESP 17
== END 2024-04-25 10:58 | disposition home or self-care (01) ==
LOC: OPOB 10:25 → OBGYN 10:28
PROVIDERS: PCP Family Medicine; Visit Provider Obstetrics & Gynecology
DX: O24.419 Gestational diabetes mellitus in pregnancy, unspecified control (principal); Z3A.00 Weeks of gestation of pregnancy not specified; O09.519 Supervision of elderly primigravida, unspecified trimester
CPT/HCPCS: 59025

== ENCOUNTER 2024-04-28 10:10 | Outpatient (CLI) | payer OTHER, SELFPAY ==
[2024-04-28 10:00] VITALS: BMI 33.2
[2024-04-28 11:07] VITALS: BP 129/80; PULSE 100
--- NOTE | 2024-04-28 11:09 | US_ITS ---
WS: [id number] BIOPHYSICAL PROFILE AMNIOTIC FLUID HISTORY: DECREASED MOVEMENT COMPARISON: 04/25/2024 position: Vertex. Cardiac activity: 150 bpm. Cervix: Obscured by the head. Placenta: Anterior, no previa or abruption. Placenta grade: 2 Parameters are as follows: Breathin Movement: 2 Tone: 2 Fluid volume: 2 Amniotic Fluid : 8.3 cm US/US OB BPP wo NST [id number] IMPRESSION: 1. Biophysical profile score: 8/8. 2. Normal amniotic fluid.
== END 2024-04-28 11:45 | disposition home or self-care (01) ==
LOC: OPOB 10:16 → OBGYN 10:17 → OPOB 10:45 → OBGYN 10:56
PROVIDERS: PCP Family Medicine; Visit Provider Obstetrics & Gynecology
DX: O24.419 Gestational diabetes mellitus in pregnancy, unspecified control (principal); Z3A.00 Weeks of gestation of pregnancy not specified
CPT/HCPCS: 59025; 76819; 99211

== ENCOUNTER → 2024-04-29 08:32 | Outpatient (BNVA) | payer OTHER, SELFPAY | PROVIDERS: PCP Family Medicine; Visit Provider Obstetrics & Gynecology | DX: O09.899 Supervision of other high risk pregnancies, unspecified trimester (principal); O34.219 Maternal care for unspecified type scar from previous cesarean delivery; O34.41 Maternal care for other abnormalities of cervix, first trimester; Z98.890 Other specified postprocedural states; O09.521 Supervision of elderly multigravida, first trimester; O24.319 Unspecified pre-existing diabetes mellitus in pregnancy, unspecified trimester; F41.9 Anxiety disorder, unspecified; F32.A Depression, unspecified; Z87.51 Personal history of pre-term labor; B37.31 Acute candidiasis of vulva and vagina; Z3A.36 36 weeks gestation of pregnancy | CPT/HCPCS: 84315; 87081 ==

== ENCOUNTER 2024-05-02 09:50 | Outpatient (CLI) | payer OTHER, SELFPAY ==
[2024-05-02 09:50] VITALS: BMI 33.0
[2024-05-02 10:03] VITALS: BP 130/75; PULSE 92
[2024-05-02 10:18] VITALS: BP 124/69; PULSE 104
[2024-05-02 10:24] VITALS: BP 124/69; PULSE 104; RESP 16; O2SAT 98
== END 2024-05-02 10:24 ==
LOC: OPOB 09:57 → OBGYN 09:58
PROVIDERS: PCP Family Medicine; Visit Provider Obstetrics & Gynecology
DX: O24.419 Gestational diabetes mellitus in pregnancy, unspecified control (principal); O09.519 Supervision of elderly primigravida, unspecified trimester; Z3A.00 Weeks of gestation of pregnancy not specified
CPT/HCPCS: 59025

== ENCOUNTER → 2024-05-06 08:52 | Outpatient (BNVA) | payer OTHER, SELFPAY | PROVIDERS: PCP Family Medicine; Visit Provider Obstetrics & Gynecology | DX: O09.899 Supervision of other high risk pregnancies, unspecified trimester (principal) | CPT/HCPCS: 84315 ==

== ENCOUNTER → 2024-05-09 08:05 | Outpatient (BNVA) | payer OTHER, SELFPAY | PROVIDERS: PCP Family Medicine; Visit Provider Obstetrics & Gynecology | DX: O09.899 Supervision of other high risk pregnancies, unspecified trimester (principal); Z87.51 Personal history of pre-term labor | CPT/HCPCS: 76819 ==

== ENCOUNTER 2024-05-09 12:00 | Outpatient (CLI) | payer OTHER, SELFPAY ==
[2024-05-09 12:06] VITALS: BP 126/75; PULSE 80
[2024-05-09 12:09] VITALS: RESP 17; BMI 33.6
[2024-05-09 12:28] VITALS: BP 124/83; PULSE 92
[2024-05-09 12:30] VITALS: BP 124/83; PULSE 92; RESP 17
== END 2024-05-09 12:30 | disposition home or self-care (01) ==
LOC: OPOB 12:01 → OBGYN 12:27
PROVIDERS: PCP Family Medicine; Visit Provider Obstetrics & Gynecology
DX: O24.419 Gestational diabetes mellitus in pregnancy, unspecified control (principal); Z3A.00 Weeks of gestation of pregnancy not specified
CPT/HCPCS: 59025; 99211

== ENCOUNTER 2024-05-12 12:17 | Outpatient (CLI) | payer OTHER, SELFPAY ==
[2024-05-12 12:18] VITALS: RESP 17; BMI 33.5
[2024-05-12 12:25] VITALS: BP 119/80; PULSE 71
[2024-05-12 12:40] VITALS: BP 125/83; PULSE 78
== END 2024-05-12 12:47 | disposition home or self-care (01) ==
LOC: OPOB 12:18 → OBGYN 12:19
PROVIDERS: PCP Family Medicine; Visit Provider Obstetrics & Gynecology
DX: O24.419 Gestational diabetes mellitus in pregnancy, unspecified control (principal); Z3A.00 Weeks of gestation of pregnancy not specified
CPT/HCPCS: 59025

== ENCOUNTER 2024-05-13 21:03 | Inpatient (IN) | payer OTHER, SELFPAY ==
[2024-05-13] MEDS: lactated ringers 1,000 ML 999 ML IV (20:50)
[2024-05-13 20:55] VITALS: BMI 33.5
[2024-05-13 21:05] LABS: Basophils % 0.3 %; Eosinophils # 0.1 10^3/uL (0.0-0.8); Eosinophils % 0.8 %; Hematocrit 39.1 % (36-47); Lymphocytes # 2.9 10^3/uL (0.8-4.8); Lymphocytes % 27.6 %; Mean Corpuscular HGB Conc 32.7 g/dL (30-55); Mean Corpuscular Hemoglobin 27.8 pg (27-33); Mean Platelet Volume 12.1 fL (7.4-10.4); Monocytes # 0.8 10^3/uL (0.2-0.9); Monocytes % 7.3 %; Neutrophils # 6.62 10^3/uL (1.8-7.7); Nucleated Red Blood Cells % 0 %; Platelet Count 214 10^3/cmm (157-399); White Blood Count 10.51 10^3/uL (3.29-11.43)
[2024-05-13 21:29] VITALS: BP 129/78; PULSE 91
--- NOTE | 2024-05-13 21:51 | ANES.PREANE2 ---
Pre-Anesthetic Assessment Height/Weight: Height 1.8 m Pulse BP 91 129/78 05/13/24 21:29 05/13/24 21:29 Epidural Familial anesthetic complications: N/V with GETA Was Beta Dolores taken within 24 hours: N/A Was Clonidine taken within 24 hours: N/A Last intake: 1999 solids Social No alcohol and No tobacco Exam alert, oriented x 3, clear to auscultation bilaterally and regular rate & rhythm Airway Submandibular: within normal limits Cervical ROM: within normal limits Mallampati: Class III Dentition: full History/ROS No significant history except as noted and No significant complaints Pulmonary None reported CV/HEM None reported None reported Hepatic None reported GI Gastroesophageal Reflux Disease Metabolic Diabetes [place] [facility] [place] None reported Neuropsych Anxiety and Depression Anesthetic Plan ASA status: 2 Anesthesia: Anesthesia Evaluation, General and Regional (specify below) (Epidural) Risk of > 500 ml blood loss (7ml/kg in children): Yes, adequate IV access and fluids planned Medications/Allergies Home Medications Medication Instructions Recorded Confirmed Last Taken Type prenat.vits,layton,olt-uqns-yjfth 1 tab PO DAILY 06/12/23 05/13/24 05/04/24 21:00 History flash glucose sensor (FreeStyle #1 ea 01/01/24 05/13/24 Unknown Rx Mundo 2 Sensor kit) pen needle, diabetic 31 gauge x #100 ea 01/01/24 05/13/24 Unknown Rx 3/16 (Comfort EZ Pen [place]) blood-glucose sensor (Dexcom G7 #9 device 01/06/24 05/13/24 Unknown Rx Sensor device) insulin glargine 100 unit/mL 30 unit SUBCUT QPM 02/04/24 05/13/24 05/04/24 21:00 History subcutaneous solution (Lantus U-100 Insulin) nifedipine 30 mg tablet,extended 30 mg PO BID #60 tabs 04/15/24 05/13/24 04/27/24 22:00 Rx release 24 hr (Procardia XL) hydroxyzine HCl 25 mg tablet 25 mg PO TID PRN anxiety #20 tabs 04/20/24 05/13/24 Unknown Rx insulin regular human 100 unit/mL 28 unit SUBCUT QAM 04/29/24 05/13/24 05/04/24 21:00 History (3 mL) subcutaneous pen sertraline 25 mg tablet (Zoloft) 25 mg PO DAILY #30 tabs 05/11/24 05/13/24 Unknown Rx Allergies Allergy/AdvReac Type Severity Reaction Status Date / Time piperacillin [From Zosyn] Allergy hives Verified 05/13/24 08:11 Sulfa (Sulfonamide Allergy rash Verified 05/13/24 08:11 Antibiotics) tazobactam [From Zosyn] Allergy hives Verified 05/13/24 08:11 [facility] Anesthesia Medical History History of gestational diabetes in prior , currently in second trimester No pertinent past medical history Denies diabetes, asthma, hypertension, seizures, DVT/PE PCP: Dr. Heath-- Also [employer] Surgical History Status post delivery 03/22/2021---primary low transverse delivery for active labor in transverse presentation. [place] C[place]all[place] [facility] [place], no extensions Hx of LASIK In 2018 S/P dilation and curettage 03/30/2020--D&C done for persistently positive beta hCG after miscarriage-by Dr. Cevallos at [facility] [place]. - Pathology showed chorionic villi with focal hydropic changes without tissue, acutely inflamed decidua and benign proliferative phase endometrium without hyperplasia. S/P LEEP She had a cone biopsy done in 2007 in the operating room by Dr. Enriquez at [facility] for an abnormal Pap smear. S/P cholecystectomy 02/12/2019--- laparoscopic procedure performed by Dr. Miller S/P tonsillectomy as a child S/P wisdom tooth extraction Family History Grandmother Breast cancer Paternal, diagnosed at age 55 Hypertension maternal Stroke maternal Denies family history of Colon cancer Ovarian cancer Diabetes Heart disease Hyperlipidemia Uterine cancer Thyroid disease Social History Smoking and tobacco/nicotine status: never used tobacco/nicotine Data Anesthesia 05/13/24 20:45 Short CBC 05/13/24 Range/Units 20:45 WBC 10.51 (3.29-11.43) 10^3/uL Hgb 12.80 (11.27-16.99) g/dL Hct 39.1 (36-47) % MCV 85.0 (85-98) fl Plt Count 214 (157-399) 10^3/cmm Neut % (Auto) 63.0 % Neut # (Auto) 6.62 (1.8-7.7) 10^3/uL Cardiac Studies: No Data to Display
[2024-05-13] MEDS: hyDROXYzine 25 mg Capsule 50 MG PO (22:06)
--- NOTE | 2024-05-13 22:11 | PM.OPHPUD ---
Labor & Delivery H&P Update Date of Procedure: May 14, 2024 Date H&P Performed: 05/13/24 H&P update information: I have reviewed H&P completed within last 30 days, I have examined patient prior to procedure and Changes to prior documentation as noted here (3/50%/-4/SROM) Admission Diagnosis:
[2024-05-13 22:35] VITALS: BP 126/77; PULSE 80
[2024-05-14] VITALS (28 sets, daily range): BP systolic 107–173; BP diastolic 57–96; PULSE 45–106; RESP 15–17; TEMP 36.8–37.2; O2SAT 94–100
[2024-05-14] MEDS: ondansetron 2 mg/ML SDV 2 mL 4 MG IVP (00:12)
[2024-05-14] MEDS: ROPivacaine syringe 100 MG/50 ML SYRINGE 10 MG EPIDURAL (00:28)
--- NOTE | 2024-05-14 00:33 | P.ANES_ITS ---
Anesthesia Procedures Procedure/Date: 05/14/24 Epidural: Time Out Performed: Yes Consents Signed: Procedure Consent and NPO Consent Consent: requested by attending/covering physician, from patient, risks and benefits reviewed and patient agrees to proceed Lumbar Level: L3-L4 Epidural position: sitting Epidural procedure: sterile prep of area (betadine), 1% lidocaine to numb the area (3 mLs), neg for paresthesia, test dose given, 1.5% xylocaine 1:200k epi (3 mLs/ 2 mLs), 0.2% Ropivacaine bolus ml (3 mLs), placed PCEA, no systemic response, sterile dressing applied, L.U.D. no apparent complications and 0.2% Ropiavacaine @ mls/hr (13) Additional Comments: SEB 5cm, catheter threaded to 11cm. Negative aspiration for CSF and blood. Patient tolerated well. 0125: 100mcg fentanyl given via IV for p ain
[2024-05-14] MEDS: oxytocin 30 UNIT/500 ML BAG 600 UNIT IV (01:22)
--- NOTE | 2024-05-14 03:13 | PM.DELIVERY ---
Delivery Note: Date of delivery: May 14, 2024 Pre-delivery diagnoses: Term Premature rupture of membranes Post-delivery diagnoses: Same Procedure: Spontaneous vaginal delivery after delivery Delivering Physician: Wilbert Esparza MD Estimated blood loss (mL): 300 Delivery: The patient was noted to be complete and pushing, so was placed in the dorsal lithotomy position, prepped and draped in the usual sterile fashion for a vaginal delivery. Pt. Noted to have epidural anesthesia. At 0118 the patient delivered a viable term female weighing 3240 g with scores of 8 and 9 at one and five minutes, respectively. The vertex was delivered spontaneously over intact perineum. The patient was asked to push and the head delivered spontaneously in the JULISSA position, over an intact perineum. A nuchal cord was checked and 1 noted, and relieved around head as necessary. The anterior shoulder delivered easily and the posterior shoulder followed. The remainder of the infant was easily delivered and the oropharynx and nasopharynx was bulb suctioned. The infant was noted to have spontaneous cry and spontaneous movement of all four extremities. The cord was clamped x 2 and cut and noted to have 2 arteries and one vein. The was passed to the mother's abdomen where nursing personnel were in attendance. Cord blood sample was then obtained. The placenta delivered intact spontaneously and the uterus was explored. 20 units of Pitocin was placed in the IV bag to firm the uterus. Examination of the cervix and vaginal vault did not reveal any lacerations. Examination of the perineum showed no lacerations.The patient tolerated this procedure well, and recovered in L&D with her in their LDR room. All sponge and needle counts were correct. Post-Delivery Status: Good and stable History History History 5 Term 1 1 Miscarriages/Ectopic 2 Living Children 2 A&P Assessment and plan (1) Term delivered: (2) , delivered, current hospitalization: Plan observation Coding Level of Care Code Acute Code for Chg Fwd Diagnoses Term delivered O80 , delivered, current hospitalization O34.219
[2024-05-14] MEDS: hyDROXYzine 25 mg Capsule 50 MG PO (06:00)
--- NOTE | 2024-05-14 08:01 | PC.NURSE ---
0715 Dexcom reading of 105. Patient states she is declining insulin due to reading. RITA RN
[2024-05-14] MEDS: docusate sodium 100 mg Capsule PO ×2 (09:14→21:30)
[2024-05-14] MEDS: PRENATAL VIT NO.130/IRON/FOLIC 1 EACH TABLET PO (09:14)
[2024-05-14] MEDS: ibuprofen 800 mg tablet PO ×3 (09:14→21:30)
[2024-05-14] MEDS: sertraline 50 mg Tablet 25 MG PO (09:15)
[2024-05-14 13:02] LABS: Hematocrit 35.7 % (36-47); Mean Corpuscular HGB Conc 32.5 g/dL (30-55); Mean Corpuscular Hemoglobin 27.6 pg (27-33); Mean Platelet Volume 12.8 fL (7.4-10.4); Platelet Count 189 10^3/cmm (157-399); Red Cell Distribution Width 14.9 % (12.1-15.1); White Blood Count 14.26 10^3/uL (3.29-11.43)
[2024-05-15] MEDS: HYDROcodone-acetaminophen 5-325 mg Tablet PO (00:15)
[2024-05-15] MEDS: hyDROXYzine 25 mg Capsule PO (00:15)
[2024-05-15 04:00] VITALS: BP 114/72; PULSE 81; TEMP 36.7
--- NOTE | 2024-05-15 07:00 | ANE.PACU2 ---
Inpatient post-anesthesia follow up: Airway intact: Yes Vital signs: Temperature 98.1 F Pulse Rate 87 Respiratory Rate 15 Blood Pressure 113/77 Pulse Oximetry 99 Oxygen Delivery Me thod Room Air Oxygen Flow Rate Fraction of Inspir ed Oxygen Hydration adequate: Yes Nausea and vomiting: No Pain level: 1 Mental status: Baseline Epidural Start/End: Epidural Start Date: 05/14/24 Epidural Start Time: 00:15 Epidural End Date: 05/15/24 Epidural End Time: 01:30
[2024-05-15] MEDS: docusate sodium 100 mg Capsule PO (09:07)
[2024-05-15] MEDS: PRENATAL VIT NO.130/IRON/FOLIC 1 EACH TABLET PO (09:07)
[2024-05-15] MEDS: sertraline 50 mg Tablet 25 MG PO (09:07)
[2024-05-15] MEDS: ibuprofen 800 mg tablet PO (09:07)
[2024-05-15 09:45] VITALS: BP 111/67; PULSE 74; RESP 17; TEMP 37
--- NOTE | 2024-05-15 13:53 | PM.OBGYDC ---
Discharge Providers CUSTOMS COMPLIANCE ANALYST Date of Admission: 05/13/24 21:03 Date of Discharge: 05/15/24 Attending Provider at Admission: Wilbert Esparza MD Attending Provider at Discharge: Wilbert Esparza MD Primary Care Provider: Mary Heath MD Diagnoses at Discharge Discharge Diagnosis (1) Term delivered: Status: Acute (2) , delivered, current hospitalization: Status: Acute Reason for Visit Reason for Visit: [facility]OM Hospital Course Hospital Course Mrs. Espinosa 34-year-old female G5, P1122 with an estimated gestational age at 38 weeks +1-day. Came to labor and delivery with premature rupture of membranes. She progressed to have a spontaneous vaginal delivery without complications. observation has been uneventful. Tolerating diet well. Ambulating without difficulty. She is afebrile and hemodynamically stable day 1. She was counseled regarding pelvic rest for 6 weeks (no sex, no tampons, no vaginal douches). Return to the emergency room if any fever, increased bleeding or pain. Information Peripartum Data: Infant Delivery Method: Vaginal Physical Exam Narrative: GA; alert and oriented x 3 HEENT: normal Breasts: engorged Nipples - skin intact Lungs; clear to auscultation Heart: regular rhythm, no murmurs. Abd: Appropriately tender. BS+. Uterine fundus below umbilicus. No Fundal Tenderness. Perineum: normal lochia. Extremities: no edema, no cyanosis, no tenderness. Urinary Catheter Management: Britt Latex: Cath Placed During This Visit: yes, but has since been removed by the nurse Reason for Continuing Indwelling Catheter: Other Urinary Catheter Date of Insertion: 05/14/24 Urinary Catheter Time of Insertion: 00:46 Date Urinary Catheter Removed: 05/14/24 Time Urinary Catheter Discontinued: 01:05 History History History 5 Term 1 1 Miscarriages/Ectopic 2 Living Children 2 Discharge Data Studies Completed and Pending Laboratory Results WBC 14.26 10^3/uL (3.29-11.43) H 05/14/24 12:50 RBC 4.20 10^6/uL (3.85-5.65) 05/14/24 12:50 Hgb 11.60 g/dL (11.27-16.99) 05/14/24 12:50 Hct 35.7 % (36-47) L 05/14/24 12:50 MCV 85.0 fl (85-98) 05/14/24 12:50 MCH 27.6 pg (27-33) 05/14/24 12:50 MCHC 32.5 g/dL (30-55) 05/14/24 12:50 RDW 14.9 % (12.1-15.1) 05/14/24 12:50 Plt Count 189 10^3/cmm (157-399) 05/14/24 12:50 MPV 12.8 fL (7.4-10.4) H 05/14/24 12:50 Neut % (Auto) 63.0 % 05/13/24 20:45 Lymph % (Auto) 27.6 % 05/13/24 20:45 Gates % (Auto) 7.3 % 05/13/24 20:45 Eos % (Auto) 0.8 % 05/13/24 20:45 Baso % (Auto) 0.3 % 05/13/24 20:45 Neut # (Auto) 6.62 10^3/uL (1.8-7.7) 05/13/24 20:45 Lymph # (Auto) 2.9 10^3/uL (0.8-4.8) 05/13/24 20:45 Gates # (Auto) 0.8 10^3/uL (0.2-0.9) 05/13/24 20:45 Eos # (Auto) 0.1 10^3/uL (0.0-0.8) 05/13/24 20:45 Baso # (Auto) 0.0 10^3/uL (0.0-0.1) 05/13/24 20:45 Nucleated RBC % (auto) 0 % 05/13/24 20:45 Nucleated RBCs # 0.0 /100WBC 05/13/24 20:45 Blood Type O Positive 05/13/24 20:45 Rho(D) Type Rh positive 05/13/24 20:45 Antibody Screen Negative 05/13/24 20:45 Vitals Last Vital Signs Temp 98.6 F 05/15/24 09:45 Pulse 74 05/15/24 09:45 Resp 17 05/15/24 09:45 BP 111/67 05/15/24 09:45 Pulse Ox 99 05/14/24 21:30 O2 Del Method Room Air 05/15/24 09:45 Results Labs OB ([facility]): Obstetrics US 04/20/24 Obstetrics US/Biophysical Profile 05/09/24 Blood Type O Positive 05/13/24 Antibody Screen Negative 05/13/24 Hct 35.7 % (36-47) L 05/14/24 Hgb 11.60 g/dL (11.27-16.99) 05/14/24 Rho(D) Type Rh positive 05/13/24 Plt Count 189 10^3/cmm (157-399) 05/14/24 Hep Bs Antigen Non-reactive (Nonreactive) 11/05/23 Hepatitis C Antibody Non-reactive (Nonreactive) 11/05/23 Rubella IgG Antibody 85.1 IU/mL (0.0-10.0) H 11/05/23 RPR Nonreactive (Nonreactive) 11/05/23 HIV 1&2 Ab & HIV 1 Ag Non-reactive (Non-Reactiv) 11/05/23 TSH 1.25 uIU/mL (0.27-4.20) 03/22/24 Free T4 0.72 ng/dL (0.82-1.77) L 03/22/24 C.trachomatis RNA (TMA) Not detected (NOT DETECTED) 11/20/23 N.gonorrhoeae RNA (TMA) Not detected (NOT DETECTED) 11/20/23 T. vaginalis Amp RNA Not detected (NOT DETECTED) 11/20/23 Chlamydia/GC Comment See note 11/20/23 Cystic Fibrosis Screen Negative 11/20/23 Glucose 1 Hr 50 gm 176 mg/dL (85-140) H 12/15/23 Gest Glucose Tolerance mg/dL 12/17/23 Progesterone 18.33 ng/mL 09/25/23 Ser , Semi-Qnt 70692.00 mIU/mL 10/02/23 Urine Opiates Screen Negative ng/mL (Negative) 11/05/23 Ur Barbiturates Screen Negative ng/mL (Negative) 11/05/23 Ur Phencyclidine Scrn Negative ng/mL (Negative) 11/05/23 Ur Amphetamines Screen Negative ng/mL (Negative) 11/05/23 U Benzodiazepines Scrn Negative ng/mL (Negative) 11/05/23 Urine Cocaine Screen Negative ng/mL (Negative) 11/05/23 U Marijuana (THC) Screen Negative ng/mL (Negative) 11/05/23 Micro Urine Specimen 11/05/23 Pap Smear Interpret See note 11/20/23 Discharge Plan Discharge Patient Disposition: Home Condition: Stable Prescriptions: New ibuprofen 800 mg tablet 800 mg PO TID PRN (Reason: pain) Qty: 60 0RF acetaminophen 325 mg capsule 325 mg PO Q4H PRN (Reason: fever or pain) Qty: 60 0RF Continued prenat.vits,layton,yae-cjuf-smacg Tablet 1 tab PO DAILY insulin glargine [Lantus U-100 Insulin] 100 unit/mL solution 30 unit SUBCUT QPM (DME) pen needle, diabetic [Comfort EZ Pen [place]] 31 gauge x 3/16 needle See Rx Instructions .Route Qty: 100 3RF Rx Instructions: As directed (DME) FreeStyle Mundo 2 Sensor Kit See Rx Instructions .Route Qty: 1 0RF Rx Instructions: As directed (DME) Dexcom G7 Sensor Device See Rx Instructions .Route Qty: 9 3RF Rx Instructions: As directed hydroxyzine HCl 25 mg tablet 25 mg PO TID PRN (Reason: anxiety) Qty: 20 0RF sertraline [Zoloft] 25 mg tablet 25 mg PO DAILY Qty: 30 3RF insulin regular human 100 unit/mL (3 mL) insulin pen 28 unit SUBCUT QAM Rx Instructions: 25 units breakfast, 25 units lunch and 28 units dinner Discharge Orders: Discharge Order (Routine); Ordered 05/15/24 Ordered By: Wilbert Esparza Referrals: Wilbert Esparza MD [Physician] - 6 Weeks Discharge Diet: Usual diet Discharge Activity: Limit activity as instructed Patient Instructions: Depression (DC), Opioid Safety (DC), Preeclampsia and Eclampsia After Delivery (GEN), Hemorrhage (DC), OB Discharge Report, OB Food/Drug Interaction Guide, Opioid Safety, OB Home Care, OB Vaginal Deliveries - [facility], Abnormal Bleeding Activity Restrictions/Additional Instructions: 1. Please call [facility] on next working day to make your appointment in 6 weeks. 2. Please stay home until you come back to the clinic on first post-hospatilization check up. 3. Please follow instructions on your medications CAREFULLY. 4. If you have abdominal incision, do not cover it unless dressing is necessary because of drainage. OK to shower, but avoid bath. Leave steri-strips until they fall off. If they are still on one week after surgery, you may remove them. 5. If you had vaginal surgery or vaginal repair, Dr. Esparza may instruct you to take SITZ bath. 6. Yellow, blood tinged odorous vaginal discharge is usually normal after hysterectomy or vaginal surgeries. 7. No SEXUAL INTERCOURSE, tampons, or douches until you are completely released from the post-operative care. 8. Avoid constipation by eating right and maybe using some Metamucil or Milk of Magnesia. 9. All prescription refills are given during the working hours. Please do no wait till it runs out. Call the clinic at [phone] before your medication runs out. The clinic will get in touch with your doctor to prescribe medications if necessary. 10. Please remain within 40 mile radius from our hospital because emergencies do happen now and then during the post-operative period. 11. If you have stairs at home, take one step at a time slowly and minimize the number of trips. It helps to stay in one floor for the next few days. No lifting except what you can lift by one hand until you are released from the post-operative care. 12. Driving is discouraged until you are well healed. It may be 3-4 weeks before you feel strong enough to drive. You should be able to turn and look through the rear window without pain and you should be able to push the brake pedal very hard without pain before you drive. No fast rules, but SAFETY should be your primary concern. DO NOT drive if you are on sedating medications such as narcotics. 13. Call the clinic (during working hours) to make urgent appointment or go to the Emergency room, if any of the following occurs: i. Vaginal bleeding becomes heavy, more than a period. ii. Incision becomes red and sore, or drains pus. iii. Your TEMPERATURE is over 100.4F or you have chill. iv. IV site becomes red and swollen (a little ``knot?? is usually OK) v. Persistent nausea and vomiting vi. Persistent constipation or diarrhea vii. Rash or allergic reaction to medications. Discharge Attestations C[employer]S COMPLIANCE ANALYST Time Spent in Discharge Care*: greater than 30 min Coding Level of Care Code Acute Code for Chg Fwd Diagnoses Term delivered O80 , delivered, current hospitalization O34.219
[2024-05-15 14:41] VITALS: BP 113/77; PULSE 87; RESP 15; TEMP 36.7
== END 2024-05-15 14:35 | disposition home or self-care (01) | DRG 807 ==
LOC: OPOB 21:03 → OBGYN 21:03
PROVIDERS: Admitting Provider Obstetrics & Gynecology; PCP Family Medicine; Visit Provider Obstetrics & Gynecology
DX: O24.12 Pre-existing type 2 diabetes mellitus, in childbirth (principal); Z37.0 Single live birth; O99.344 Other mental disorders complicating childbirth; Z3A.38 38 weeks gestation of pregnancy; Z79.4 Long term (current) use of insulin; F41.9 Anxiety disorder, unspecified; F32.A Depression, unspecified; O75.89 Other specified complications of labor and delivery; K21.9 Gastro-esophageal reflux disease without esophagitis
CPT/HCPCS: 36415; 51702; 59409; 85025; 85027; 86850; 86900; 96374; 99211; J2405; J2590; J2795; J3010; J7120

== ENCOUNTER → 2024-06-30 09:00 | Outpatient (BNVA) | payer OTHER, SELFPAY | PROVIDERS: PCP Family Medicine; Visit Provider Obstetrics & Gynecology | DX: O24.319 Unspecified pre-existing diabetes mellitus in pregnancy, unspecified trimester (principal); O34.219 Maternal care for unspecified type scar from previous cesarean delivery | CPT/HCPCS: 82951 ==

== ENCOUNTER → 2024-10-17 09:24 | Outpatient (BNVA) | payer OTHER, SELFPAY | PROVIDERS: PCP Family Medicine; Visit Provider Family Medicine | DX: Z86.32 Personal history of gestational diabetes (principal); R79.89 Other specified abnormal findings of blood chemistry | CPT/HCPCS: 83036; 84439; 84443 ==

== ENCOUNTER 2025-02-20 10:59 | Outpatient (RCR) | payer OTHER, SELFPAY | END 2025-03-12 23:59 | disposition home or self-care (01) | LOC: SPT 10:59 | PROVIDERS: Visit Provider Family Medicine | DX: M62.89 Other specified disorders of muscle (principal); N39.46 Mixed incontinence | CPT/HCPCS: 97161 ==

== ENCOUNTER 2025-03-13 05:00 | Outpatient (RCR) | payer OTHER, SELFPAY | END 2025-04-12 23:59 | disposition home or self-care (01) | LOC: SPT 05:00 | PROVIDERS: PCP Family Medicine; Visit Provider Family Medicine | DX: M62.89 Other specified disorders of muscle (principal); N39.46 Mixed incontinence | CPT/HCPCS: 97110; 97530 ==